=== PATIENT | male | born 1935 | race Caucasian/White ===

== ENCOUNTER → 2016-12-17 | Outpatient (CLI) | payer OTHER ==
[~2016-12-17] MED LIST: AMLO-114 PO; ASPI1TAB83 PO; CALC-16 PO; CRD4 PO; FBR PO; FSMD/70 PO; FURO-85 PO; LEVO150T PO; METO50TA16 PO; NIAC1TAB59 PO; NSP500 PO; OMEG10007 PO; POTA-335 PO; TAMS0.4C38 PO
[2016-12-17 12:26] LABS: BASO % 0.4 %; BASO ABS # 0.02 K/uL (0-0.2); COMPLETE YES; EOS % 6.2 %; HEMATOCRIT 40.8 % (42-52); IG% 0.2 %; LYMPH % 27.8 %; LYMPH ABS # 1.56 K/uL (1.2-3.4); MEAN CORPUSCULAR HEMOGLOBIN 31.8 pg (25-34); MEAN CORPUSCULAR HGB CONC 33.1 g/dl (32-36); MEAN PLATELET VOLUME 8.8 fL (7.4-10.4); MONO % 7.1 %; NEUT % 58.3 %; PLATELET COUNT 228 K/uL (130-400); RED BLOOD COUNT 4.25 M/uL (4.7-6.1); WHITE BLOOD COUNT 5.62 K/uL (4.8-10.8)
[2016-12-17 12:56] LABS: ALT/SGPT 28 U/L (12-78); BLOOD UREA NITROGEN 13 mg/dl (7-18); BUN/CREATININE RATIO 13.1 (10-20); CARBON DIOXIDE 28 mmol/L (21-32); CHLORIDE 104 mmol/L (98-107); CHOLESTEROL 151 mg/dl (0-200); GLUCOSE 94 mg/dl (70-99); SODIUM 140 mmol/L (136-145); TRIGLYCERIDES 86 mg/dl (0-150); VERY LOW DENSITY LIPOPROT CALC 17 mg/dl
[2016-12-17 12:58] LABS: CALCIUM 9.3 mg/dl (8.5-10.1)
[2016-12-17 13:05] LABS: ALB/GLOB RATIO 1.3 (0.9-2); ALKALINE PHOSPHATASE 73 U/L (45-117); AST/SGOT 29 U/L (15-37); CHOLESTEROL/HDL RATIO 3.4; HDL CHOLESTEROL 45 mg/dl; LDL CHOLESTEROL CALCULATED 89 mg/dl
== END | disposition home or self-care (01) ==
LOC: C.LABBFT 07:30
PROVIDERS: ATTEND Internal Medicine
DX: R73.01 Impaired fasting glucose (principal); E03.9 Hypothyroidism, unspecified; M81.0 Age-related osteoporosis without current pathological fracture; I10 Essential (primary) hypertension

== ENCOUNTER → 2017-01-01 | Outpatient (CLI) | payer OTHER ==
[~2017-01-01] MED LIST changes: +OPTIRAY 320 IV PRN
--- NOTE | 2017-01-01 07:48 | DIAGNOSTIC IMAGING REPORT ---
CT OF THE CHEST WITH IV CONTRAST CLINICAL HISTORY: Pulmonary nodule COMPARISON STUDY: 12/06/2015 TECHNIQUE: Following the IV administration of 94 mL of Optiray-320, CT of the thorax was performed from the thoracic inlet to the lung bases. Images are reviewed in the axial, sagittal, and coronal planes. IV contrast was administered without complication. CT DOSE: 408.26 mGy.cm FINDINGS: Thyroid: Imaged portions of the thyroid gland are normal in appearance. Thoracic aorta: The ascending thoracic aorta measures 4 cm. Pulmonary vasculature: The pulmonary trunk is normal in caliber. There are no central filling defects identified to suggest pulmonary embolus. Note that this examination was not protocoled for the evaluation of pulmonary emboli. HEART: The heart is normal in size and configuration, without pericardial effusion. Lungs and pleural spaces: No pleural effusions are visualized. There is a stable 6 x 4 mm left lower lobe pulmonary nodule as visualized in image #[id number]. There is a stable 2.5 mm right apical nodule as visualized in image #[id number]. Mediastinum: There is no mediastinal lymphadenopathy. Thu: Clear. Axilla: Clear. Upper abdomen: There is a stable 23 mm hypodensity with thin the left lobe of the liver Skeletal structures: There are no lytic or blastic osseous lesions. IMPRESSION: 1. Stable ectasia of the ascending thoracic aorta 2. Stable 6 x 4 mm left lower lobe pulmonary nodule. No further follow-up is indicated 3. Stable 2.5 mm right apical pulmonary nodule 4. No evidence of focal airspace consolidation Electronically signed by: Levi Treviño M.D. 01/01/2017 7:47 AM Dictated Date/Time: 01/01/2017 7:39 AM
== END | disposition home or self-care (01) ==
LOC: C.CTS 07:01
PROVIDERS: ATTEND Internal Medicine
DX: R91.1 Solitary pulmonary nodule (principal); I77.819 Aortic ectasia, unspecified site

== ENCOUNTER → 2017-01-16 | Outpatient (CLI) | payer OTHER ==
[~2017-01-16] MED LIST changes: -OPTIRAY 320 IV PRN
== END | disposition home or self-care (01) ==
LOC: C.LABBFT 11:22
PROVIDERS: ATTEND Urology
DX: N40.0 Benign prostatic hyperplasia without lower urinary tract symptoms (principal); C61 Malignant neoplasm of prostate

== ENCOUNTER → 2017-03-02 | Outpatient (CLI) | payer OTHER | END | disposition home or self-care (01) | LOC: C.MAMM 07:38 | PROVIDERS: ATTEND Physician Assistant | DX: M81.0 Age-related osteoporosis without current pathological fracture (principal) ==

== ENCOUNTER → 2017-04-21 | Outpatient (CLI) | payer OTHER ==
[2015-10-26 09:22] VITALS: BP 132/65; PULSE 62
[2017-04-21 12:52] VITALS: BP 124/53; PULSE 54; TEMP 36.6; O2SAT 94
--- NOTE | 2017-04-21 13:33 | Radiation Oncology Follow-Up ---
Radiation Oncology Follow-Up Date of Visit Apr 21, 2017. Reason For Visit Annual follow-up Radiation Completion Date Seed Implant 12/16/11, IMRT 03/12/12 Diagnosis (1) Prostate cancer Status: Resolved Onset Date: 12/12/2010 Location: left lobe of the prostate Histology Subtype: adenocarcinoma Stage: ll Permanent Comment: Adenocarcinoma the prostate presenting PSA 6.5 Status post ultrasound-guided biopsies. Biopsy stage T2b Potosi grade 3+4, 4+3 , and 4+4 Initiation of hormonal suppression 01/16/2011 Status post seed implant as a boost with cesium 131 12/16/2011 received 8500 cGy Status post completion of radiation therapy with IMRT/IGRT completed 03/12/2012 received 4500 cGy Osteopenia on Fosamax Last Edited By: Carri Bruce on Oct 26, 2015 11:15 Interim History His urinary status is stable over the past year. Today he gave an AUA score of 10. Last year he gave an AUA score of 10. He continues on tamsulosin 1 daily. He completed expanded prostate cancer index composite for clinical practice and gave a score of 2 of 12 and urinary incontinence symptoms. He gave a score of 4 of 12 urinary irritation symptoms. He gave a score of 0 of 12 and bowel symptoms. He gave a score of 8 of 12 sexual symptoms. He gave a score of 0 of 12 and hormonal vitality symptoms. His total was 14 of 60. This was improved from last year at 20 of 60. He hadn't been on hormonal suppression for approximate two-year time. His PSAs have been stable. He had a PSA 11/26/2015 that was 0.029. He had a PSA on 01/16/2017. And that was 0.012. His DEXA scans are followed by Dr. Gonzalez. He states that there is improvement in his DEXA scan. He continues on calcium and vitamin D as well as Fosamax. He has some lower abdominal discomfort. This is related to constipation. This is been previously evaluated with colonoscopy in 2013. He has history of diverticulosis. He does use a fiber product daily. His found that eating yogurt also helps to prevent the constipation. He is also been followed by the pulmonary nodule clinic. He has a previous history of pulmonary nodules. These are stable. He does not require a recheck CT in reviewing the previous studies. Allergies Coded Allergies: Lisinopril (Verified Adverse Reaction, Mild, MUSCLE CRAMPS, 07/28/13) Statins (Verified Adverse Reaction, Mild, MUSCLE CRAMPING, 07/28/13) Home Medications Scheduled Alendronate/Cholecalciferol (Fosamax+D 70MG/2800 Iu), 1 TABLET PO WK Amlodipine (Norvasc), 10 MG PO QPM Aspirin (Aspirin), 81 MG PO DAILY Calcium Citrate-Vitamin D (Calcium Citrate+D), 1 TAB PO BID Calcium Polycarbophil (Fibercon *), 4 CAP PO HS Calcium Polycarbophil (Fibercon *), 3 CAP PO AM Doxazosin Mesylate (Cardura *), 8 MG PO HS Fish Oil ([place]-3), 1 CAP PO BID Furosemide (Lasix), 1 TAB PO DAILY Levothyroxine Sodium (Synthroid), 150 MCG PO DAILY Metoprolol Tartrate (Lopressor) (Lopressor), 50 MG PO BID Niacin Ext Rel (Niaspan Ext Rel), 2,000 MG PO HS Niacin Ext Rel (Niaspan Ext Rel), 500 MG PO HS Potassium Chloride (Micro-K Ext Rel), 20 MEQ PO BID Tamsulosin Hcl (Flomax), 1 CAP PO DAILY Review of Systems Gastrointestinal: Symptoms: WNL GI Comments: Diarrhea over the weekend - has since resolved Oral: Symptoms: No Problems Respiratory: Symptoms: WNL Urinary: Symptoms: WNL, Nocturia Comments: Nocturia x 1-2, Urgency Skin: Other Skin Symptoms: See AUA & EPIC Physical Exam Vital Signs Date Time Temp Pulse Resp B/P (MAP) Pulse Ox O2 Delivery O2 Flow Rate FiO2 04/21/17 12:52 36.6 54 16 124/53 94 Pain: Side: Bilateral Patient Pain Scale: 0 - 10 Initial Pain Intensity: 0.0 Fatigue: None General Appearance: no apparent distress Eyes: normal inspection, EOMI ENT: normal ENT inspection, hearing grossly normal Neck: no adenopathy, thyroid normal Respiratory/Chest: lungs clear, no respiratory distress, no accessory muscle use Cardiovascular: regular rate, rhythm, no gallop, no murmur Anal / Rectum: External and internal hemorrhoids. No rectal masses no rectal bleeding Prostate consistent with seed implant. There are no nodules. Extremities: no pedal edema Neurologic/Psychiatric: no motor/sensory deficits, alert, normal mood/affect Skin: warm/dry Additional Studies PSAs as reviewed above. Assessment & Plan Plan: Continue regular follow-up with his primary care physician, urology, and rheumatology. He'll continue to get PSAs on an annual basis. Follow-up DEXA scanning through rheumatology. A follow-up appointment with our office was not given. He may call if he has any questions or concerns we'll be happy to see him. Total Time In Follow-Up I spent 20 minutes speaking to the patient forming examination. I spent15 minutes reviewing information and completing this note. Copy To William Shirley M.D.; Caroline Gonzalez MD; Roldan Ervin MD
== END | disposition home or self-care (01) ==
LOC: C.ONC 12:33
PROVIDERS: ATTEND Physician Assistant Medical
DX: Z08 Encounter for follow-up examination after completed treatment for malignant neoplasm (principal); Z92.3 Personal history of irradiation; Z85.46 Personal history of malignant neoplasm of prostate

== ENCOUNTER → 2017-05-12 | Outpatient (CLI) | payer OTHER ==
--- NOTE | 2017-05-12 11:11 | DIAGNOSTIC IMAGING REPORT ---
CAROTID DOPPLER NECK ART HISTORY: Mental status change I65.29 Carotid artery stenosis, [id number] F.PU., LAST DOPP COMPARISON: 04/28/2016 TECHNIQUE: Real-time, grayscale, and color Doppler sonography of the carotid arteries was performed. Imaging reviewed in the transverse and longitudinal planes. All measurements were calculated based on NASCET criteria. FINDINGS: Antegrade flow is seen in the bilateral vertebral arteries. The brachial pressures are hemodynamically similar. Moderate plaque formation bilaterally. The peak systolic velocity within the right ICA is 174. The right systolic ratio is 2.6. The peak systolic velocity within the left ICA is 1:30. The left systolic ratio is 2.0. IMPRESSION: 1. 50-65% narrowing right internal carotid artery. 2. 30% narrowing of the left internal carotid artery. 3. Mild 30-40% narrowing of the extra carotid arteries bilaterally. 4. No significant change from the prior exam The above report was generated using voice recognition software. It may contain grammatical, syntax or spelling errors. Electronically signed by: Tima Smith M.D. 05/12/2017 11:09 AM Dictated Date/Time: 05/12/2017 11:07 AM
== END | disposition home or self-care (01) ==
LOC: C.ULTR 09:37
PROVIDERS: ATTEND Surgery
DX: I65.23 Occlusion and stenosis of bilateral carotid arteries (principal)

== ENCOUNTER → 2017-07-17 | Outpatient (CLI) | payer OTHER ==
[~2017-07-17] MED LIST changes: -AMLO-114 PO; +AMLO10TA3 PO
== END | disposition home or self-care (01) ==
LOC: C.LABBFT 07:48
PROVIDERS: ATTEND Internal Medicine
DX: E55.9 Vitamin D deficiency, unspecified (principal); E03.9 Hypothyroidism, unspecified

== ENCOUNTER → 2018-02-09 | Outpatient (CLI) | payer OTHER | END | disposition home or self-care (01) | LOC: C.MAMM 10:48 | PROVIDERS: ATTEND Physician Assistant | DX: M81.0 Age-related osteoporosis without current pathological fracture (principal) ==

== ENCOUNTER 2023-06-25 10:31 | Inpatient (IN) ==
[2023-06-25] MEDS ORDERED: ALBUT/IPRATROP 3MG/0.5MG NEB 3 ML VIAL NEB STA (11:22)
[2023-06-25 11:38] LABS: Basophils # (auto) 0.04 K/uL (0.00-0.20); Basophils % (auto) 0.3 %; Eosinophils # (auto) 0.18 K/uL (0.00-0.50); Eosinophils % (auto) 1.2 %; Hematocrit (blood only) 34.7 % (42.0-52.0); Hemoglobin 11.9 g/dl (14.0-18.0); Immature Granulocytes # (auto) 0.16 K/uL (0.01-0.20); Immature Granulocytes % (auto) 1.1 %; Lymphocytes % (auto) 4.1 %; Mean Corpuscular Hemoglobin 33.1 pg (25.0-34.0); Mean Corpuscular Hgb Conc 34.3 g/dL (32.0-36.0); Mean Corpuscular Volume 96.4 fL (80.0-100.0); Mean Platelet Volume 8.6 fL (9.4-12.4); Monocytes # (auto) 0.84 K/uL (0.11-0.59); Monocytes % (auto) 5.8 %; Neutrophils # (auto) 12.69 K/uL (1.40-6.50); Neutrophils % (auto) 87.5 %; Platelet Count 312 K/uL (130-400); RDW Coefficient of Variation 12.9 % (11.5-14.5); RDW Standard Deviation 45.9 fL (36.4-46.3); White Blood Count 14.51 K/ul (4.8-10.8)
--- NOTE | 2023-06-25 11:38 | XRay Report ---
SINGLE VIEW CHEST CLINICAL HISTORY: Chest weakness. Cough and chest congestion. FINDINGS: 2 AP, portable, upright chest radiographs are compared to study dated 05/26/2014 and correla franky with chest CT dated 01/01/2017. The heart is enlarged and noting atherosclerotic calcification of the thoracic aorta. The pulmonary vasculature is noncongested. Chronic interstitial thickening is sim ilar to previous. There is elevation right hemidiaphragm. Foci of parenchymal scarring are seen throu ghout both lungs. There are left basilar airspace opacities. There are also mild opacities in the rig ht midlung. No large pleural effusion or pneumothorax is seen. The skeletal structures are osteopenic . The bony thorax is grossly intact. Degenerative change is noted in the shoulders and spine. IMPRESSION: 1. Cardiomegaly without radiographic evidence of congestive failure. 2. Left basilar opacities as well as mild opacities in the right midlung could represent scarring/ate lectasis versus an infectious/inflammatory pneumonitis. Clinical correlation will be required and rad iographic follow-up to resolution is recommended. 3. No pleural effusion is seen. ACT 112: Negative or not required by law. Electronically signed by: Reji Garcia M.D. 06/25/2023 11:37 AM
[2023-06-25 11:52] LABS: Alanine Aminotransferase 31 U/L (7-52); Albumin Level 3.4 gm/dl (3.4-5.0); Alkaline Phosphatase 80 U/L (34-104); Anion Gap 10 (3-11); Aspartate Aminotransferase 37 U/L (13-39); BUN Creatinine Ratio 15.5 (10-20); Bilirubin,Total 0.8 mg/dl (0.2-1.0); Blood Urea Nitrogen 13 mg/dl (6-23); Calcium 9.1 mg/dl (8.6-10.3); Carbon Dioxide 24 mmol/L (21-32); Chloride 97 mmol/L (98-107); Est GFR (Non-African American) 77.6 ml/min; Globulin 3.3 gm/dl (2.5-4.0); Glucose 125 mg/dl (70-99(Fasting)); Potassium 3.7 mmol/L (3.5-5.1); Sodium 131 mmol/L (136-145); Total Protein 6.7 gm/dl (6.0-8.3)
[2023-06-25] MEDS ORDERED: cefTRIAXone SODIUM 2,000 MG/50 ML BAG IV STA (11:54)
[2023-06-25] MEDS ORDERED: SODIUM CHLORIDE 0.9% 1,000 ML IV SCH (12:00)
--- NOTE | 2023-06-25 12:01 | Emergency Department Note ---
Impression & Plan Pneumonia, Acute non-ST elevation myocardial infarction (NSTEMI) ED Provider Note CHIEF COMPLAINT: Shortness of breath, cough HISTORY OF PRESENT ILLNESS: This 87-year-old male patient past medical history of dementia, anemia, hypercholesterolemia, hypertension, hypothyroidism, carotid stenosis, prostate cancer presents to the emergency department with complaints of cough and shortness of breath. Patient's son is at the bedside, stating today's first day he noticed mucus production. He denies any fevers or chest discomfort. He has not had any vomiting or diarrhea. Patient was seen at the PCPs office today and referred to the ED for further evaluation. REVIEW OF SYSTEMS: A review of systems was performed with positives and pertinent negatives listed in the history of present illness. 10 systems were reviewed and are otherwise negative. ALLERGIES: see below MEDICATIONS: see below PMH: see below SOCIAL HISTORY: see below DDx:Reactive airway disease, pneumonia, pneumothorax, COPD, CHF, infections, cardiac ischemia, pulmonary embolism, as well as other pathologies. PHYSICAL EXAM: Vital signs reviewed. General: Well-appearing 87-year-old, in no significant distress. HEENT: No scleral icterus, PERRLA, neck supple. Atraumatic. Cardiovascular: Regular rate and rhythm, no extra sounds. Pulmonary: Clear to auscultation bilaterally, normal work of breathing. Abdomen: Soft, nontender, nondistended, positive bowel sounds. Musculoskeletal: Atraumatic, no peripheral edema. Neurologic: Patient awake alert and pleasantly confused. Answering most questions appropriately. Skin: Warm, dry, no rash EMERGENCY DEPARTMENT COURSE/MDM: This patient was evaluated and appeared to be in no significant distress. Chest x-ray was performed and reveals patchy bilateral infiltrates. Patient does have an oxygen requirement via nasal cannula for recurrent desaturations into the mid to high 80s. IV fluids were initiated. The patient was medicated with IV ceftriaxone after blood cultures were obtained. Patient's laboratory work reveals a leukocytosis and elevated high-sensitivity troponin at 1061. EKG reveals no evidence of acute ischemic change to my interpretation. Patient did receive aspirin 324 mg by mouth. He again denied any chest discomfort. Given the patchy bilateral infiltrates, oxygen requirement and non-STEMI, patient's case was discussed with the hospitalist service for admission and further management. MONITORING: An order for cardiac monitoring was placed and the patient is noted to be in a normal sinus rhythm at 67 beats per minute. RADIOLOGY: Chest x-ray to my interpretation reveals cardiomegaly and left basilar opacity and right midlung opacities, otherwise defer to radiology is over read EKG: To my interpretation reveals normal sinus rhythm with sinus arrhythmia at 73 bpm. Normal QTc at 405, no PVC, no PAC. Normal ST segments. 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 Biopsy stage T2b [place] grade 3+4, 4+3, and 4+4 Initiation of hormonal suppression 01/16/2011 Status post seed implant as a boost with cesium 131 12/16/2011 received 8500 cGy Status post completion of radiation therapy with IMRT/IGRT completed 03/12/2012 received 4500 cGy Osteopenia on Fosamax" Surgical History S/P cholecystectomy S/P cataract surgery Family History Mother Heart disease Other Hypertension Denies family history of Ovarian cancer Prostate cancer Coronary heart disease Myocardial infarction Breast cancer Colorectal cancer Social History Smoking Status: Former smoker Tobacco Type: Cigarettes Age Started Using Tobacco: 14; Age Quit Using Tobacco: 19; packs per day: 1.5; Cigarettes Per Day: 30; Second Hand Exposure: No; Do You Dip or Chew Tobacco: No; Hx Alcohol Use: No Hx Substance Use: No Preferred Language: Brazilian Communication Ability: Effective Visual Impairment: No Limitations Hearing Ability: Normal 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 Beliefs That Will Affect Care: None marital status: / Current Living Situation: Alone current occupational status: retired Feels Safe at Home: Yes Childhood Exposure to Second-Hand Smoke: Yes Diet: regular caffeine: Yes Dental Care, Regularly: No Physical Activity Frequency: Daily Seatbelt Use: always Sunscreen Use: No Assistive Devices: Cane Allergies Allergies Allergy/AdvReac Type Severity Reaction Status Date / Time lisinopril AdvReac Mild MUSCLE Verified 06/25/23 09:29 CRAMPS Thieoey-[id number]-TdN Reductase AdvReac Mild MUSCLE Verified 06/25/23 09:29 Inhibitor CRAMPING [Mjebpxa-Iph-Njd Reductase Inhibitor] ezetimibe [From Zetia] AdvReac Unknown Unknown Verified 06/25/23 09:29 losartan [From Cozaar] AdvReac Unknown Unknown Verified 06/25/23 09:29 olmesartan [From Benicar] AdvReac Unknown Unknown Verified 06/25/23 09:29 pravastatin AdvReac Unknown Unknown Verified 06/25/23 09:29 rosuvastatin [From Crestor] AdvReac Unknown Unknown Verified 06/25/23 09:29 simvastatin AdvReac Unknown Unknown Verified 06/25/23 09:29 Home Meds Previous Rx's Medication Instructions Recorded triamcinolone acetonide 0.1 % 1 applic topical BID #454 grams 08/06/22 topical cream ferrous sulfate 325 mg (65 mg 325 mg PO Q OTHER DAY #15 tabs 11/05/22 iron) tablet calcium polycarbophil 625 mg tablet 625 mg PO .COMPLEX #90 tabs 11/18/22 donepezil 10 mg tablet 10 mg PO DAILY #30 tabs 12/01/22 furosemide 20 mg tablet 20 mg PO DAILY #30 tabs 12/01/22 levothyroxine 175 mcg tablet 175 mcg PO DAILY #30 tabs 12/01/22 metoprolol tartrate 50 mg tablet 50 mg PO BID #60 tabs 12/01/22 potassium chloride 20 mEq 20 meq PO BID #180 tabs 12/10/22 tablet,extended release niacin 1,000 mg tablet,extended 2,000 mg (2 x 1,000 mg) PO HS #30 05/08/23 release tabs niacin 500 mg tablet,extended 500 mg PO HS #30 tabs 05/08/23 release amiodarone 200 mg tablet 200 mg PO QAM #90 tabs 06/28/23 apixaban 5 mg tablet (Eliquis) 5 mg PO BID #180 tabs 06/28/23 benzocaine 20 % mucosal gel 1 applic MT TID PRN mouth 06/28/23 (HurriCaine) irritation #28.4 grams cefdinir 300 mg capsule 300 mg PO BID #6 caps 06/28/23 doxazosin 4 mg tablet 4 mg PO HS #30 tabs 06/29/23 Results & Data (ED) Vital Signs Vital Signs - 24 hr 06/25/23 10:41 06/25/23 11:18 06/25/23 11:35 Temperature 36.3 C L Temperature Source Temporal Artery Scan Pulse Rate 70 74 Pulse Rate [Finger] 67 Pulse Rhythm [Finger] Regular Respiratory Rate 18 18 Respiratory Effort / Characteristics Non-Labored Spontaneous Non-Labored Spontaneous Respiratory Depth Normal Normal Respiratory Pattern Regular Regular Blood Pressure 117/70 Blood Pressure [Right Arm] 132/70 Blood Pressure Mean 85 Blood Pressure Mean [Right Arm] 90 Blood Pressure Position Sitting Blood Pressure Position [Right Arm] Sitting Pulse Oximetry 92 98 Oxygen Delivery Method Room Air Nebulizer Sepsis Recent Fever Within 48 Hours No Sepsis New/Unexplained Change in Mental Status N/A Sepsis Action Taken by Nursing No Action Required Pulse Oximetry Post Tiitration 06/25/23 11:35 Temperature Temperature Source Pulse Rate Pulse Rate [Finger] Pulse Rhythm [Finger] Respiratory Rate Respiratory Effort / Characteristics Respiratory Depth Respiratory Pattern Blood Pressure Blood Pressure [Right Arm] Blood Pressure Mean Blood Pressure Mean [Right Arm] Blood Pressure Position Blood Pressure Position [Right Arm] Pulse Oximetry 95 Oxygen Delivery Method Room Air Nebulizer Sepsis Recent Fever Within 48 Hours Sepsis New/Unexplained Change in Mental Status Sepsis Action Taken by Nursing Pulse Oximetry Post Tiitration 98 Home Medications Current Medication List: was personally reviewed by me Laboratory Data Attestation: I reviewed the patient's lab results. 06/28/23 05:35 06/28/23 05:35 Lab Results 06/25/23 Range/Units 11:20 WBC 14.51 H (4.8-10.8) K/ul RBC 3.60 L (4.70-6.10) M/uL Hgb 11.9 L (14.0-18.0) g/dl Hct 34.7 L (42.0-52.0) % MCV 96.4 (80.0-100.0) fL MCH 33.1 (25.0-34.0) pg MCHC 34.3 (32.0-36.0) g/dL RDW Std Deviation 45.9 (36.4-46.3) fL RDW Coeff of Brown 12.9 (11.5-14.5) % Plt Count 312 (130-400) K/uL MPV 8.6 L (9.4-12.4) fL Immature Gran % (Auto) 1.1 % Neut % (Auto) 87.5 % Lymph % (Auto) 4.1 % Towner % (Auto) 5.8 % Eos % (Auto) 1.2 % Baso % (Auto) 0.3 % Neut # (Auto) 12.69 H (1.40-6.50) K/uL Lymph # (Auto) 0.60 L (1.20-3.40) K/uL Towner # (Auto) 0.84 H (0.11-0.59) K/uL Eos # (Auto) 0.18 (0.00-0.50) K/uL Baso # (Auto) 0.04 (0.00-0.20) K/uL Immature Gran # (Auto) 0.16 (0.01-0.20) K/uL Sodium 131 L (136-145) mmol/L Potassium 3.7 (3.5-5.1) mmol/L Chloride 97 L (98-107) mmol/L Carbon Dioxide 24 (21-32) mmol/L Anion Gap 10 (3-11) BUN 13 (6-23) mg/dl Creatinine 0.84 (0.6-1.4) mg/dl Est Cr Clr Drug Dosing Not Reportable Est GFR ( Amer) 90.0 ml/min Est GFR (Non-Af Amer) 77.6 ml/min BUN/Creatinine Ratio 15.5 (10-20) Glucose 125 H (70-99(Fasting)) mg/dl Calcium 9.1 (8.6-10.3) mg/dl Total Bilirubin 0.8 (0.2-1.0) mg/dl AST 37 (13-39) U/L ALT 31 (7-52) U/L Alkaline Phosphatase 80 (34-104) U/L Troponin I High Sens 1061.3 H* (0-20) pg/ml Total Protein 6.7 (6.0-8.3) gm/dl Albumin 3.4 (3.4-5.0) gm/dl Globulin 3.3 (2.5-4.0) gm/dl Albumin/Globulin Ratio 1.0 (0.9-2) Procalcitonin Cancelled Adenovirus (PCR) Not Detected (NotDetected) B. pertussis DNA (PCR) Not Detected (NotDetected) B.parapertussis DNA PCR Not Detected (NotDetected) C. pneumoniae DNA (PCR) Not Detected (NotDetected) Coronavirus OC43 (PCR) Not Detected (NotDetected) Coronavirus HKU1 (PCR) Not Detected (NotDetected) Coronavirus 229E (PCR) Not Detected (NotDetected) SARS-CoV-2 (PCR) Not Detected (NotDetected) Coronavirus NL63 (PCR) Not Detected (NotDetected) Human Metapneumovir PCR Not Detected (NotDetected) Influenza Type A (PCR) Not Detected (NotDetected) Influenza Type B (PCR) Not Detected (NotDetected) M. pneumoniae (PCR) Not Detected (NotDetected) Parainfluenza 1 (PCR) Not Detected (NotDetected) Parainfluenza 2 (PCR) Not Detected (NotDetected) Parainfluenza 3 (PCR) Not Detected (NotDetected) Parainfluenza 4 (PCR) Not Detected (NotDetected) RSV (PCR) Not Detected (NotDetected) Entero/Rhino (PCR) Not Detected (NotDetected) Administered Medications Discontinued Medications Albuterol (Albut/Ipratrop 3mg/0.5mg Neb 3 Ml Vial) 3 ml NEB NOW STA; Protocol Stop: 06/25/23 11:23 Last Admin: 06/25/23 11:32 Dose: 3 ml Documented By: SKGosia Albuterol (Albut/Ipratrop 3mg/0.5mg Neb 3 Ml Vial) 3 ml NEB Q4R KELLEE; Protocol Stop: 07/25/23 14:59 Last Admin: 06/28/23 14:30 Dose: 3 ml Documented By: Admin: 06/28/23 10:30 Dose: 3 ml Documented By: Admin: 06/28/23 07:17 Dose: 3 ml Documented By: Admin: 06/28/23 02:47 Dose: 3 ml Documented By: Admin: 06/27/23 22:03 Dose: 3 ml Documented By: Admin: 06/27/23 17:59 Dose: 3 ml Documented By: Admin: 06/27/23 14:31 Dose: 3 ml Documented By: Admin: 06/27/23 11:06 Dose: 3 ml Documented By: Admin: 06/27/23 07:27 Dose: 3 ml Documented By: Admin: 06/27/23 02:55 Dose: 3 ml Documented By: Admin: 06/26/23 22:40 Dose: 3 ml Documented By: Admin: 06/26/23 19:56 Dose: 3 ml Documented By: Admin: 06/26/23 15:25 Dose: 3 ml Documented By: Admin: 06/26/23 10:49 Dose: 3 ml Documented By: Admin: 06/26/23 07:04 Dose: 3 ml Documented By: Admin: 06/26/23 03:53 Dose: Not Given Documented By: Admin: 06/25/23 23:14 Dose: 3 ml Documented By: Admin: 06/25/23 19:28 Dose: 3 ml Documented By: Admin: 06/25/23 16:22 Dose: Not Given Documented By: [facility] Amiodarone HCl (Amiodarone 200 Mg Tab) 200 mg PO BIDM KELLEE Stop: 07/26/23 09:39 Last Admin: 06/28/23 09:55 Dose: 200 mg Documented By: Admin: 06/27/23 17:52 Dose: 200 mg Documented By: Admin: 06/27/23 08:30 Dose: 200 mg Documented By: Admin: 06/26/23 16:06 Dose: 200 mg Documented By: Admin: 06/26/23 10:47 Dose: 200 mg Documented By: REYNALDO Apixaban (Apixaban 5 Mg Tablet) 5 mg PO BID KELLEE Stop: 07/26/23 09:44 Last Admin: 06/28/23 09:55 Dose: 5 mg Documented By: Admin: 06/27/23 20:14 Dose: 5 mg Documented By: Admin: 06/27/23 09:46 Dose: 5 mg Documented By: Admin: 06/26/23 20:24 Dose: 5 mg Documented By: Admin: 06/26/23 10:47 Dose: 5 mg Documented By: REYNALDO Aspirin (Aspirin Chew 324 Mg) 324 mg PO NOW STA Stop: 06/25/23 12:09 Last Admin: 06/25/23 12:18 Dose: 324 mg Documented By: ANGELIQUE Azithromycin (Azithromycin 250 Mg Tab) 500 mg PO NOW ONE Stop: 06/25/23 15:46 Last Admin: 06/25/23 16:31 Dose: 500 mg Documented By: VIVIANA Azithromycin (Azithromycin 250 Mg Tab) 250 mg PO QAM [facility] Stop: 06/30/23 08:59 Last Admin: 06/28/23 09:55 Dose: 250 mg Documented By: Admin: 06/27/23 08:30 Dose: 250 mg Documented By: Admin: 06/26/23 08:17 Dose: 250 mg Documented By: REYNALDO Benzocaine (Benzocaine 20% (Orajel) 11.9 Gm Tube) 1 appln MT TID PRN PRN Reason: mouth/gum pain Stop: 07/26/23 10:42 Last Admin: 06/26/23 11:57 Dose: 1 appln Documented By: REYNALDO Donepezil HCl (Donepezil Hcl 10 Mg Tab) 10 mg PO DAILY KELLEE Stop: 07/26/23 08:59 Last Admin: 06/28/23 09:55 Dose: 10 mg Documented By: Admin: 06/27/23 08:30 Dose: 10 mg Documented By: Admin: 06/26/23 08:18 Dose: 10 mg Documented By: REYNALDO Doxazosin Mesylate (Doxazosin Mesylate 4 Mg Tab) 8 mg PO HS [facility] Stop: 07/25/23 20:59 Last Admin: 06/27/23 20:14 Dose: 8 mg Documented By: Admin: 06/26/23 20:25 Dose: 8 mg Documented By: Admin: 06/25/23 20:22 Dose: 8 mg Documented By: AAMIR Enoxaparin Sodium (Enoxaparin Inj 40 Mg/0.4 Ml Syr) 40 mg SQ DAILY KELLEE Stop: 07/25/23 15:44 Last Admin: 06/25/23 17:18 Dose: Not Given Documented By: VIVIANA Fluticasone Propionate (Fluticasone Propionate Na Spr 16 Gm Btl) 2 sprays NA DAILY [facility] Stop: 07/26/23 08:59 Last Admin: 06/28/23 09:55 Dose: 2 sprays Documented By: Admin: 06/27/23 08:30 Dose: 2 sprays Documented By: Admin: 06/26/23 08:18 Dose: 2 sprays Documented By: REYNALDO Guaifenesin (Guaifenesin 600 Mg Tabcr) 600 mg PO Q12 KELLEE Stop: 07/25/23 20:59 Last Admin: 06/28/23 09:55 Dose: 600 mg Documented By: Admin: 06/27/23 20:14 Dose: 600 mg Documented By: Admin: 06/27/23 08:30 Dose: 600 mg Documented By: Admin: 06/26/23 20:25 Dose: 600 mg Documented By: Admin: 06/26/23 08:18 Dose: 600 mg Documented By: Admin: 06/25/23 20:22 Dose: 600 mg Documented By: AAMIR Heparin Sodium (Porcine) (Heparin Sod (Porcine) 1000 Unit/Ml) 4,000 units IV NOW ONE Stop: 06/25/23 16:16 Last Admin: 06/25/23 17:06 Dose: 4,000 units Documented By: VIVIANA Co-signed By: RU Heparin Sodium (Porcine) (Heparin Sod (Porcine) 1000 Unit/Ml) 3,000 units IV NOW ONE Stop: 06/26/23 08:16 Last Admin: 06/26/23 08:22 Dose: 3,000 units Documented By: REYNALDO Co-signed By: Heparin Sodium/Dextrose (Heparin Iv Adult Wt-Based Low-Dose W/ Initial Bolus Protocol) 1 each IV NOW STA; Protocol Stop: 06/25/23 15:58 Last Admin: 06/25/23 17:57 Dose: Not Given Documented By: [id number] Sodium Chloride (Nss) 1,000 mls @ 100 mls/hr IV .Q10H KELLEE Stop: 07/25/23 11:59 Last Infusion: 06/25/23 17:34 Dose: Infused Documented By: Admin: 06/25/23 12:11 Dose: 100 mls/hr Documented By: ANGELIQUE Ceftriaxone Sodium (Rocephin) 2,000 mg in 50 mls @ 100 mls/hr IV NOW STA Stop: 06/25/23 12:23 Last Infusion: 06/25/23 13:50 Dose: Infused Documented By: Admin: 06/25/23 12:10 Dose: 100 mls/hr Documented By: ANGELIQUE Ceftriaxone Sodium 2,000 mg/ (Dextrose) 50 mls @ 100 mls/hr IV Q24H KELLEE; Protocol Stop: 07/03/23 11:59 Last Infusion: 06/28/23 14:21 Dose: Infused Documented By: Admin: 06/28/23 13:30 Dose: 100 mls/hr Documented By: Infusion: 06/27/23 12:51 Dose: Infused Documented By: Admin: 06/27/23 11:47 Dose: 100 mls/hr Documented By: Infusion: 06/26/23 16:06 Dose: Infused Documented By: Admin: 06/26/23 15:23 Dose: 100 mls/hr Documented By: WS Heparin Sodium/Dextrose (Heparin Sodium/Dextrose) 25,000 units in 500 mls @ 25 mls/hr IV .Q20H KELLEE; Protocol Stop: 07/25/23 16:14 Last Titration: 06/26/23 10:41 Dose: Infused Documented By: REYNALDO Co-signed By: Titration: 06/26/23 08:22 Dose: 1,250 units/hr, 25 mls/hr Documented By: REYNALDO Co-signed By: MS Titration: 06/26/23 07:22 Dose: 1,100 units/hr, 22 mls/hr Documented By: WS Co-signed By: AM Titration: 06/26/23 00:09 Dose: 1,100 units/hr, 22 mls/hr Documented By: AAMIR Co-signed By: VIOLETA Admin: 06/25/23 17:06 Dose: 1,000 units/hr, 20 mls/hr Documented By: VIVIANA Co-signed By: RRR Magnesium Sulfate/Dextrose (Magnesium Sulfate / D5w) 1 gm in 100 mls @ 50 mls/hr IV Q2H KELLEE Stop: 06/26/23 00:44 Last Infusion: 06/26/23 01:00 Dose: Infused Documented By: Admin: 06/25/23 22:59 Dose: 50 mls/hr Documented By: Infusion: 06/25/23 22:53 Dose: Infused Documented By: Admin: 06/25/23 20:48 Dose: 50 mls/hr Documented By: Infusion: 06/25/23 20:47 Dose: Infused Documented By: Admin: 06/25/23 18:41 Dose: 50 mls/hr Documented By: Infusion: 06/25/23 18:41 Dose: Infused Documented By: Admin: 06/25/23 16:51 Dose: 50 mls/hr Documented By: VIVIANA Parenteral Electrolytes (Plasma-Lyte A Ph 7.4) 500 mls @ 999 mls/hr IV .Q31M ONE Stop: 06/25/23 17:39 Last Infusion: 06/25/23 18:30 Dose: Infused Documented By: Admin: 06/25/23 17:35 Dose: 999 mls/hr Documented By: VIVIANA Parenteral Electrolytes (Plasma-Lyte A Ph 7.4) 1,000 mls @ 125 mls/hr IV .Q8H KELLEE Stop: 06/26/23 01:14 Last Infusion: 06/26/23 00:59 Dose: Infused Documented By: Admin: 06/25/23 17:48 Dose: 125 mls/hr Documented By: VIVIANA Levothyroxine Sodium (Levothyroxine Sodium 175 Mcg Tablet) 175 mcg PO DAILYBB [facility] Stop: 07/26/23 06:29 Last Admin: 06/28/23 06:27 Dose: 175 mcg Documented By: Admin: 06/27/23 05:37 Dose: 175 mcg Documented By: Admin: 06/26/23 07:00 Dose: 175 mcg Documented By: AAMIR Metoprolol Tartrate (Metoprolol Tartrate 50 Mg Tab) 50 mg PO BID [facility] Stop: 07/25/23 20:59 Last Admin: 06/28/23 09:55 Dose: 50 mg Documented By: Admin: 06/27/23 20:14 Dose: 50 mg Documented By: Admin: 06/27/23 08:30 Dose: 50 mg Documented By: Admin: 06/26/23 20:24 Dose: 50 mg Documented By: Admin: 06/26/23 08:17 Dose: 50 mg Documented By: Admin: 06/25/23 20:32 Dose: 50 mg Documented By: AAMIR Metoprolol Tartrate (Metoprolol Tartrate 1 Mg/Ml Vial) 5 mg IV NOW STA Stop: 06/25/23 15:58 Last Admin: 06/25/23 16:13 Dose: 5 mg Documented By: VIVIANA Metoprolol Tartrate (Metoprolol Tartrate 1 Mg/Ml Vial) 5 mg IV NOW STA Stop: 06/26/23 01:08 Last Admin: 06/26/23 01:24 Dose: 5 mg Documented By: AM Niacin (Niacin Extended Rel 500 Mg Tabcr) 2,000 mg PO HS KELLEE Stop: 07/25/23 20:59 Last Admin: 06/27/23 20:13 Dose: 2,000 mg Documented By: Admin: 06/26/23 20:26 Dose: 2,000 mg Documented By: Admin: 06/25/23 20:23 Dose: 2,000 mg Documented By: AM Potassium Chloride (Potassium Chloride Crtab 20 Meq Tabcr) 20 meq PO BID KELLEE Stop: 07/25/23 20:59 Last Admin: 06/28/23 10:00 Dose: 20 meq Documented By: Admin: 06/27/23 20:16 Dose: 20 meq Documented By: Admin: 06/27/23 08:33 Dose: 20 meq Documented By: Admin: 06/26/23 20:27 Dose: 20 meq Documented By: Admin: 06/26/23 08:18 Dose: 20 meq Documented By: Admin: 06/25/23 20:24 Dose: 20 meq Documented By: AM Potassium Chloride (Potassium Chloride Crtab 20 Meq Tabcr) 40 meq PO NOW STA Stop: 06/26/23 08:43 Last Admin: 06/26/23 09:06 Dose: 40 meq Documented By: REYNALDO Imaging Data Radiologist's Impression: Chest X-Ray 06/25/23 10:45 SINGLE VIEW CHEST CLINICAL HISTORY: Chest weakness. Cough and chest congestion. FINDINGS: 2 AP, portable, upright chest radiographs are compared to study dated 05/26/2014 and correlated with chest CT dated 01/01/2017. The heart is enlarged and noting atherosclerotic calcification of the thoracic aorta. The pulmonary vasculature is noncongested. Chronic interstitial thickening is similar to previous. There is elevation right hemidiaphragm. Foci of parenchymal scarring are seen throughout both lungs. There are left basilar airspace opacities. There are also mild opacities in the right midlung. No large pleural effusion or pneumothorax is seen. The skeletal structures are osteopenic. The bony thorax is grossly intact. Degenerative change is noted in the shoulders and spine. IMPRESSION: 1. Cardiomegaly without radiographic evidence of congestive failure. 2. Left basilar opacities as well as mild opacities in the right midlung could represent scarring/atelectasis versus an infectious/inflammatory pneumonitis. Clinical correlation will be required and radiographic follow-up to resolution is recommended. 3. No pleural effusion is seen. ACT 112: Negative or not required by law. Electronically signed by: Reji Garcia M.D. 06/25/2023 11:37 AM Discharge Plan Visit Data Chief Complaint: Shortness of Breath/Dyspnea Stated Complaint: CHEST CONGESTION, SOB, REFERRED BY DOCTOR ED Provider: Karen Kidd Discharge Problem: Pneumonia, Acute non-ST elevation myocardial infarction (NSTEMI) Patient Disposition: Admitted As Inpatient Condition: Good Discharge Instructions Interventions: ED Discharge Assessment Last Done: 06/25/23 14:15 Discharge Problem: Pneumonia Qualifiers: Pneumonia type: due to unspecified organism Laterality: bilateral Lung location: unspecified part of lung Qualified Code(s): J18.9 - Pneumonia, unspecified organism
[2023-06-25 12:05] LABS: Troponin I High Sensitivity 1061.3 pg/ml (0-20)
[2023-06-25] MEDS ORDERED: ASPIRIN CHEW 324 MG PO STA (12:08)
--- NOTE | 2023-06-25 12:17 | History & Physical Report ---
Date of Service June 25, 2023 Assessment & Plan (1) Pneumonia: Plan: Likely bacterial pneumonia. No COPD or asthma history. Patient does not meet SIRs criteria and is non-toxic appearing. BioFire negative. Started on CTX in the ED. Repeat CXR with unclear findings. Consider CT if clinical picture worsening. ABX: start 06/25 CTX will continue for now and add on Azithromycin f/u blood cultures pulmonary toilet - IS, mucinex, nebs as needed procal pending AM CBC (2) Elevated troponin: Plan: Elevated troponin @ 1061. 2 hour repeat pending. Likely demand ischemia as EKG without signs of ischemic changes and patient asymptomatic. Continue to monitor. If trop persistently elevated would get limited ECHO. (3) Weakness: Plan: Likely in the setting of acute illness. PT/OT ordered. (4) Hyponatremia: Plan: Likely in the setting of poor PO intake in acutely ill period. Would encourage PO and continue to monitor. Continue with NS IVF for now. AM BMP (5) Hypertension: Plan: Stable on metoprolol and furosemide. Continue metoprolol. Would hold furosemide for today as patient hypovolemic, normotensive, and without signs of fluid overload. No history of heart failure. Does have cardiomyopathy. Resume based on clinical status. (6) Prostate cancer: Plan: Continue home doxazosin. 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 (8) Hypercholesterolemia: Plan: Patient statin intolerant. Continue home niacin 2500 mg. Plan Code status: full DVT ppx: Lovenox SQ 40 mg QAM FENGI: heart healthy, NS @ 100 mL/hr Dispo: [facility] - Tele History of Present Illness Chief Complaint: SOB Primary Care Provider: William Shirley MD 87 y/o male with a PMHx of dementia, osteoporosis, HTN, asymptomatic, carotid artery stenosis, hypothyroidism, brought in by son after outpatient appointment today as he has been having progressive SOB of approximately 1 week duration. O2 saturation was 91% in office which prompted ED evaluation. Patient was started on CTX for presumed pneumonia and given a nebulizer treatment. Patient was also dehydrated and was started on NS @ 100 mL/hr. Notably labs were significant for leukocytosis and an elevated troponin at 1061. Repeat is pending. EKG without ST changes. Patient with chest congestion, cough, mucous production, shortness of breath, and generalized weakness that has been getting progressively worse. Patient has required the use of a wheel chair as he is weak. Patient denies any chest pain or chest pressure. No pain in the arm, back, or jaw. No nausea or vomiting. He is not sweating profusely. Allergies Allergy/AdvReac Type Severity Reaction Status Date / Time lisinopril AdvReac Mild MUSCLE Verified 06/25/23 09:29 CRAMPS Tqjxbfg-NQS-BtQ Reductase AdvReac Mild MUSCLE Verified 06/25/23 09:29 Inhibitor CRAMPING [Fekyjcs-Cxv-Jbk Reductase Inhibitor] ezetimibe [From Zetia] AdvReac Unknown Unknown Verified 06/25/23 09:29 losartan [From Cozaar] AdvReac Unknown Unknown Verified 06/25/23 09:29 olmesartan [From Benicar] AdvReac Unknown Unknown Verified 06/25/23 09:29 pravastatin AdvReac Unknown Unknown Verified 06/25/23 09:29 rosuvastatin [From Crestor] AdvReac Unknown Unknown Verified 06/25/23 09:29 simvastatin AdvReac Unknown Unknown Verified 06/25/23 09:29 Home Medications Medication Instructions Recorded Confirmed Type triamcinolone acetonide 0.1 % 1 applic topical BID #454 grams 08/06/22 06/25/23 Rx topical cream ferrous sulfate 325 mg (65 mg 325 mg PO Q OTHER DAY #15 tabs 11/05/22 06/25/23 Rx iron) tablet aspirin 81 mg tablet,delayed 81 mg PO DAILY #30 tabs 11/10/22 06/25/23 Rx release calcium polycarbophil 625 mg tablet 625 mg PO .COMPLEX #90 tabs 11/18/22 06/25/23 Rx fluticasone propionate 50 2 spray intranasal DAILY #16 grams 11/18/22 06/25/23 Rx mcg/actuation nasal spray,suspension donepezil 10 mg tablet 10 mg PO DAILY #30 tabs 12/01/22 06/25/23 Rx doxazosin 4 mg tablet 8 mg (2 x 4 mg) PO HS #60 tabs 12/01/22 06/25/23 Rx furosemide 20 mg tablet 20 mg PO DAILY #30 tabs 12/01/22 06/25/23 Rx levothyroxine 175 mcg tablet 175 mcg PO DAILY #30 tabs 12/01/22 06/25/23 Rx metoprolol tartrate 50 mg tablet 50 mg PO BID #60 tabs 12/01/22 06/25/23 Rx potassium chloride 20 mEq 20 meq PO BID #180 tabs 12/10/22 06/25/23 Rx tablet,extended release niacin 1,000 mg tablet,extended 2,000 mg (2 x 1,000 mg) PO HS #30 05/08/23 06/25/23 Rx release tabs niacin 500 mg tablet,extended 500 mg PO HS #30 tabs 05/08/23 06/25/23 Rx release Past Med/Surg History Medical History Anemia Dysuria [place] syndrome Lung nodule Osteoarthritis Prostate cancer (12/12/10) Prostate cancer Renal artery stenosis Surgical History S/P cataract surgery S/P cholecystectomy Family History Mother Heart disease Other Hypertension Denies family history of Ovarian cancer Prostate cancer Coronary heart disease Myocardial infarction Breast cancer Colorectal cancer Social History Smoking Status: Former smoker Tobacco Type: Cigarettes Age Started Using Tobacco: 14; Age Quit Using Tobacco: 19; packs per day: 1.5; Cigarettes Per Day: 30; Second Hand Exposure: No; Do You Dip or Chew Tobacco: No; Tobacco Cessation Education Requested by Patient: No Hx Alcohol Use: No Hx Substance Use: No Preferred Language: Hebrew Communication Ability: Effective Visual Impairment: No Limitations Hearing Ability: Normal Game Room Attendant Required: No Beliefs That Will Affect Care: None marital status: / Current Living Situation: Alone current occupational status: retired Other Information That Helps Us Care for You: No Feels Safe at Home: Yes Childhood Exposure to Second-Hand Smoke: Yes Diet: regular caffeine: Yes Dental Care, Regularly: No Physical Activity Frequency: Daily Seatbelt Use: always Sunscreen Use: No Assistive Devices: Cane, Denture - Upper, Denture - Lower, Raised Toilet Seat, Walker and Wheelchair Review of Systems 2 Review of Systems: See HPI Physical Exam 2 Physical Exam: Gen: non-toxic appearing elderly male in NAD HEENT: AT NC, MMM, OP clear, PERRL, EOMI Resp: CTAB with adequate air movement, good inspiratory effort, rhonchi noted diffusely - clear with coughing, no increased work of breathing, no accessory muscle usage CV: RRR no m/r/g clinically well perfused peripheral pulses 2+ symmetric Abd: soft, non-tender, non-distended, no HSM or masses noted Skin: warm, dry, well perfused, no rashes or bruising noted Neuro: alert and oriented Psych: appropriate mood and affect MSK: no obvious deformities Results & Data Results & Data Vital Signs (Past 12 Hours) Vital Signs Temp Pulse Pulse Resp BP BP Pulse Ox 06/25/23 11:35 95 06/25/23 11:35 67 18 132/70 98 06/25/23 11:18 74 06/25/23 10:41 36.3 C L 70 18 117/70 92 O2 Del Method 06/25/23 11:35 Room Air, Nebulizer 06/25/23 11:35 Nebulizer 06/25/23 11:18 06/25/23 10:41 Room Air Laboratory Results 06/25/23 11:20 06/25/23 11:20 Diagnostic Findings Chest X-Ray 06/25/23 10:45 FINDINGS: 2 AP, portable, upright chest radiographs are compared to study dated 05/26/2014 and correlated with chest CT dated 01/01/2017. The heart is enlarged and noting atherosclerotic calcification of the thoracic aorta. The pulmonary vasculature is noncongested. Chronic interstitial thickening is similar to previous. There is elevation right hemidiaphragm. Foci of parenchymal scarring are seen throughout both lungs. There are left basilar airspace opacities. There are also mild opacities in the right midlung. No large pleural effusion or pneumothorax is seen. The skeletal structures are osteopenic. The bony thorax is grossly intact. Degenerative change is noted in the shoulders and spine. IMPRESSION: 1. Cardiomegaly without radiographic evidence of congestive failure. 2. Left basilar opacities as well as mild opacities in the right midlung could represent scarring/atelectasis versus an infectious/inflammatory pneumonitis. Clinical correlation will be required and radiographic follow-up to resolution is recommended. 3. No pleural effusion is seen. Supervising Physician Co-Signing Physician Notes Baltazar is an 87-year-old male with no past medical history of LA/CHF who presented with cough, congestion and suspectedPneumonia on x-ray. He had a mild leukocytosis and was admitted for the treatment of community-acquired pneumonia. Initial EKG did not show territorial signs of ischemia, troponin subsequently resulted at 1000. Patient reports he is chest pain-free preceding admission and during admission, has not had any chest pain or chest pressure at any point. Patient was volume resuscitated, treated with antibiotics as noted and admitted for further monitoring. 2-hour repeat troponin was ordered, pending following transfer to room. Patient clinically with a rhythm change on monitor and has been intermittently in A-fib/a flutter, and notified by telemetry that he had a brief run of NSVT with stable blood pressure. Repeat EKG with A-fib with ? ST depressions versus repole. patient remains completely chest pain-free. Stat echo placed, cardiology consulted for ischemic evaluation. He is on metoprolol 50 twice daily, one 5 mg IV dose was given for acute rate control. Magnesium level is pending, goal magnesium 2.0/potassium 4.0. Stat echo with no wall motion abnormalities, troponin subsequently returned and is downtrending to 800. Reviewed with cardiology, suspected demand ischemia do not feel this represents atypical ACS. will continue heparinization based on A-fib and continue optimization of both rate control and fluid status on PCU. Stat echo pending formal read but without wall motion abnormality or reduced EF. Resident Activity Tracking Resident Involvement: Resident Care Provided Care Provided: Adult Hospital Medicine
[2023-06-25 12:31] LABS: Adenovirus PCR Not Detected (NotDetected); Bordetella parapertussis PCR Not Detected (NotDetected); Bordetella pertussis PCR Not Detected (NotDetected); Chlamydia pneumoniae PCR Not Detected (NotDetected); Coronavirus 229E PCR Not Detected (NotDetected); Coronavirus CoV-2 (COVID19)PCR Not Detected (NotDetected); Coronavirus HKU1 PCR Not Detected (NotDetected); Coronavirus NL63 PCR Not Detected (NotDetected); Coronavirus OC43PCR Not Detected (NotDetected); Human Metapneumovirus PCR Not Detected (NotDetected); Influenza A PCR Not Detected (NotDetected); Influenza B PCR Not Detected (NotDetected); Mycoplasma pneumoniae PCR Not Detected (NotDetected); Parainfluenza Virus 1 PCR Not Detected (NotDetected); Parainfluenza Virus 2 PCR Not Detected (NotDetected); Parainfluenza Virus 3 PCR Not Detected (NotDetected); Parainfluenza Virus 4 PCR Not Detected (NotDetected); Respiratory Syncytial VirusPCR Not Detected (NotDetected); Rhinovirus/Enterovirus PCR Not Detected (NotDetected)
[2023-06-25 14:07] LABS: Appearance Urine Clear (Clear); Bilirubin Urine Negative (Negative); Blood Urine Negative (Negative); Color Urine Yellow; Glucose Urine UA Negative (Negative); Ketones Urine 1+ (Negative); Leukocyte Esterase Urine Negative (Negative); Nitrite Urine Negative (Negative); Protein Urine Negative (Negative); Specific Gravity Urine 1.014 (1.000-1.030); Urobilinogen Urine Negative (Negative); pH Urine 5.5 (4.5-7.5)
--- NOTE | 2023-06-25 14:31 | Electrocardiogram Report ---
Test Reason : Blood Pressure : / mmHG Vent. Rate : 073 BPM Atrial Rate : 073 BPM P-R Int : 140 ms QRS Dur : 084 ms QT Int : 368 ms P-R-T Axes : 059 023 075 degrees QTc Int : 405 ms Normal sinus rhythm with sinus arrhythmia Normal ECG When compared with ECG of 24-NOV-2011 09:20, No significant change was found Confirmed by Nixon Albert ([id number]) on 06/25/2023 2:30:54 PM Referred By: Kenrick Shirley Confirmed By:Nixon Albert
[2023-06-25] MEDS ORDERED: ONDANSETRON INJ 2 MG/ML 2 ML VIAL IV PRN (14:41)
[2023-06-25] MEDS ORDERED: ACETAMINOPHEN 325 MG TAB PO PRN (14:41)
[2023-06-25] MEDS ORDERED: POLYETHYLENE (MIRALAX) 17 GM PACK PO PRN (14:41)
[2023-06-25] MEDS ORDERED: BENZONATATE 100 MG CAPSULE PO PRN (14:41)
--- NOTE | 2023-06-25 14:50 | XRay Report ---
XR chest 2V PA/lateral CLINICAL HISTORY: pneumonia TECHNIQUE: 2 views of the chest were obtained. Comparison: Comparison is made to chest radiograph 06/25/2023 FINDINGS: No lines and tubes are seen. The cardiomediastinal silhouette is normal. There is a faint airspace op acity in the left lung base. No evidence of pleural effusion or pneumothorax. IMPRESSION: Airspace opacity in the left lower lung, unchanged from prior exam, may represent atelectasis. Previo usly noted right midlung opacity is not well seen on today's exam. ACT 112: Negative or not required by law. Electronically signed by: Quinten Toribio M.D. 06/25/2023 2:49 PM
[2023-06-25] MEDS ORDERED: AZITHROMYCIN 250 MG TAB PO ONE (15:45)
[2023-06-25] MEDS ORDERED: ENOXAPARIN INJ 40 MG/0.4 ML SYR SQ SCH (15:45)
[2023-06-25] MEDS ORDERED: Heparin IV Adult Wt-Based Low-Dose w/ INITIAL Bolus Protocol IV STA (15:57)
[2023-06-25] MEDS ORDERED: METOPROLOL TARTRATE 1 MG/ML VIAL IV STA (15:57)
[2023-06-25] MEDS ORDERED: HEPARIN SODIUM/DEXTROSE 25,000 UNITS/500 ML BAG IV SCH (16:15)
[2023-06-25] MEDS ORDERED: HEPARIN SOD (PORCINE) 1000 UNIT/ML IV ONE (16:15)
[2023-06-25 16:17] LABS: Troponin I High Sensitivity 872.6 pg/ml (0-20)
[2023-06-25] MEDS: ALBUT/IPRATROP 3MG/0.5MG NEB 3 ML VIAL NEB SCH ×3 (16:22→23:14)
[2023-06-25 16:36] LABS: Magnesium 1.5 mg/dl (1.7-2.4)
[2023-06-25] MEDS: MAGNESIUM SULFATE / D5W 1 GM/100 ML BAG IV SCH ×4 (16:51→22:59)
[2023-06-25] MEDS ORDERED: PLASMA-LYTE A 500 ML IV ONE (17:09)
[2023-06-25] MEDS ORDERED: PLASMA-LYTE A 1,000 ML IV SCH (17:15)
[2023-06-25 17:53] LABS: INR 1.1 (0.9-1.1); Partial Thromboplastin Ratio 1.2; Partial Thromboplastin Time 33 Seconds (21-31); Prothrombin Time 12.4 Seconds (9.0-12.0)
[2023-06-25] MEDS: DOXAZosin MESYLATE 4 MG TAB PO SCH (20:22)
[2023-06-25] MEDS: guaiFENesin 600 MG TABCR PO SCH (20:22)
[2023-06-25] MEDS: NIACIN EXTENDED REL 500 MG TABCR PO SCH (20:23)
[2023-06-25] MEDS: POTASSIUM CHLORIDE CRTAB 20 MEQ TABCR PO SCH (20:24)
[2023-06-25] MEDS: METOPROLOL TARTRATE 50 MG TAB PO SCH (20:32)
[2023-06-25] MEDS ORDERED: NIACIN EXTENDED REL 500 MG TABCR PO SCH (21:00)
[2023-06-26 00:01] LABS: ANTI-Xa, UFH(UnfractionatedHep 0.27 IU/ml (0.3-0.7)
[2023-06-26] MEDS ORDERED: METOPROLOL TARTRATE 1 MG/ML VIAL IV STA (01:07)
[2023-06-26] MEDS: ALBUT/IPRATROP 3MG/0.5MG NEB 3 ML VIAL NEB SCH ×6 (03:53→22:40)
[2023-06-26] MEDS: LEVOTHYROXINE SODIUM 175 MCG TABLET PO SCH (07:00)
[2023-06-26 07:24] LABS: Basophils # (auto) 0.04 K/uL (0.00-0.20); Basophils % (auto) 0.4 %; Eosinophils # (auto) 0.29 K/uL (0.00-0.50); Eosinophils % (auto) 3.2 %; Hematocrit (blood only) 29.9 % (42.0-52.0); Hemoglobin 9.8 g/dl (14.0-18.0); Immature Granulocytes # (auto) 0.16 K/uL (0.01-0.20); Immature Granulocytes % (auto) 1.8 %; Lymphocytes # (auto) 0.91 K/uL (1.20-3.40); Mean Corpuscular Hemoglobin 31.6 pg (25.0-34.0); Mean Corpuscular Hgb Conc 32.8 g/dL (32.0-36.0); Mean Corpuscular Volume 96.5 fL (80.0-100.0); Mean Platelet Volume 8.8 fL (9.4-12.4); Monocytes % (auto) 6.6 %; Neutrophils # (auto) 7.13 K/uL (1.40-6.50); Platelet Count 311 K/uL (130-400); RDW Standard Deviation 46.4 fL (36.4-46.3); White Blood Count 9.13 K/ul (4.8-10.8)
[2023-06-26 07:38] LABS: BUN Creatinine Ratio 10.9 (10-20); Calcium 8.1 mg/dl (8.6-10.3); Creatinine Clr Calc Pharmacy 85.9 ml/min; Est GFR (African American) 100.6 ml/min; Est GFR (Non-African American) 86.8 ml/min; Potassium 3.2 mmol/L (3.5-5.1)
[2023-06-26 07:45] LABS: ANTI-Xa, UFH(UnfractionatedHep 0.18 IU/ml (0.3-0.7)
[2023-06-26] MEDS ORDERED: HEPARIN SOD (PORCINE) 1000 UNIT/ML IV ONE (08:15)
[2023-06-26] MEDS: AZITHROMYCIN 250 MG TAB PO SCH (08:17)
[2023-06-26] MEDS: METOPROLOL TARTRATE 50 MG TAB PO SCH ×2 (08:17→20:24)
[2023-06-26] MEDS: DONEPEZIL HCL 10 MG TAB PO SCH (08:18)
[2023-06-26] MEDS: FLUTICASONE PROPIONATE NA SPR 16 GM BTL SCH (08:18)
[2023-06-26] MEDS: POTASSIUM CHLORIDE CRTAB 20 MEQ TABCR PO SCH ×2 (08:18→20:27)
[2023-06-26] MEDS: guaiFENesin 600 MG TABCR PO SCH ×2 (08:18→20:25)
[2023-06-26] MEDS ORDERED: POTASSIUM CHLORIDE CRTAB 20 MEQ TABCR PO STA (08:42)
[2023-06-26] MEDS ORDERED: ASPIRIN 81 MG ECTAB PO SCH (09:00)
[2023-06-26 10:16] LABS: Troponin I High Sensitivity 570.5 pg/ml (0-20)
[2023-06-26 10:24] LABS: Thyroid Stimulating Hormone 1.058 uIu/ml (0.300-4.500)
[2023-06-26] MEDS ORDERED: BENZOCAINE 20% (ORAJEL) 11.9 GM TUBE MT PRN (10:43)
[2023-06-26] MEDS: APIXABAN 5 MG TABLET PO SCH ×2 (10:47→20:24)
[2023-06-26] MEDS: AMIODARONE 200 MG TAB PO SCH ×2 (10:47→16:06)
--- NOTE | 2023-06-26 10:59 | Cardiology Consultation ---
Date of Consultation June 26, 2023 Assessment & Plan (1) Atrial fibrillation with RVR: -new diagnosis. -may be related to his acute illness. -fortunately, he converted to sinus rhythm this morning. -suggest amiodarone at 200 mg b.i.d. while hospitalized, then 200 mg daily. -suggest Eliquis 5 mg b.i.d.. -discussed with Dr. Obrien. (2) Abnormal ECG: -suspect secondary to left ventricular hypertrophy with repolarization changes. -fortunately, troponins are trending down. (3) LVH (left ventricular hypertrophy): -wiih-pb-isksvash LVH noted on echocardiogram. (4) Elevated troponin: -likely a supply demand mismatch. -no evidence of an acute coronary syndrome. -can discontinue heparin gtt. History of Present Illness Attending Physician: Homa Obrien MD History of Present Illness Mr. Leong is an 87-year-old male admitted yesterday a community-acquired pneumonia. Soon after admission he developed atrial fibrillation with a rapid ventricular response EKG. This consultation was ordered to assistance cardiac management. The patient was in his usual state health until approximately 1 week prior to presentation. He was noticing a productive cough, progressive shortness of breath, weakness, and anorexia. He was seen by Christie Mancini PA-C with the above complaints. His saturation at rest was 91%, therefore, patient was sent to the emergency room for an evaluation. Soon after admission, the patient developed atrial fibrillation with a rapid ventricular response. His EKG noted significant ST depression in the anterolateral leads. His initial troponin was also elevated 1061.3. Dr. Kumar asked that I evaluate the patient acutely. On my arrival, the patient was resting comfortably in bed and in no acute distress. He specifically denied chest discomfort and palpitations. An echocardiogram performed at the bedside noted normal left ventricular systolic function without wall motion abnormalities. There was mild LVH. We opted to start the patient on intravenous heparin because of his atrial fibrillation, and also the possibility of an acute coronary syndrome. Fortunately, the patient's repeat troponin went down to 872. This morning, at approximately 8:00 a.m., the patient converted to sinus rhythm. The patient has never known of atrial fibrillation previously. He has never had a prior cardiac history. Currently, patient is resting comfortably in bed without complaints. His son is at the bedside. Past medical and surgical history 1. Hypertension 2. Hypercholesterolemia 3. Paroxysmal atrial fibrillation-June 2023 4. Hypothyroidism 5. Iron deficiency anemia 6. Renal artery stenosis 7. Gilbert's syndrome 8. DJD 9. Dementia 10. History of prostate carcinoma 11. Intra-ocular lens implants 12. Cholecystectomy Social history , lives alone. Son lives across the street Quit tobacco use at age 19 No alcohol Family history Noncontributory Review of systems A 10 point review systems was undertaken and negative except that described above. Allergies Allergy/AdvReac Type Severity Reaction Status Date / Time lisinopril AdvReac Mild MUSCLE Verified 06/25/23 09:29 CRAMPS Qwyngdj-VCB-SgK Reductase AdvReac Mild MUSCLE Verified 06/25/23 09:29 Inhibitor CRAMPING [Nhmdcas-Ntv-Nex Reductase Inhibitor] ezetimibe [From Zetia] AdvReac Unknown Unknown Verified 06/25/23 09:29 losartan [From Cozaar] AdvReac Unknown Unknown Verified 06/25/23 09:29 olmesartan [From Benicar] AdvReac Unknown Unknown Verified 06/25/23 09:29 pravastatin AdvReac Unknown Unknown Verified 06/25/23 09:29 rosuvastatin [From Crestor] AdvReac Unknown Unknown Verified 06/25/23 09:29 simvastatin AdvReac Unknown Unknown Verified 06/25/23 09:29 Home Medications Medication Instructions Recorded Confirmed Type triamcinolone acetonide 0.1 % 1 applic topical BID #454 grams 08/06/22 06/25/23 Rx topical cream ferrous sulfate 325 mg (65 mg 325 mg PO Q OTHER DAY #15 tabs 11/05/22 06/25/23 Rx iron) tablet aspirin 81 mg tablet,delayed 81 mg PO DAILY #30 tabs 11/10/22 06/25/23 Rx release calcium polycarbophil 625 mg tablet 625 mg PO .COMPLEX #90 tabs 11/18/22 06/25/23 Rx fluticasone propionate 50 2 spray intranasal DAILY #16 grams 11/18/22 06/25/23 Rx mcg/actuation nasal spray,suspension donepezil 10 mg tablet 10 mg PO DAILY #30 tabs 12/01/22 06/25/23 Rx doxazosin 4 mg tablet 8 mg (2 x 4 mg) PO HS #60 tabs 12/01/22 06/25/23 Rx furosemide 20 mg tablet 20 mg PO DAILY #30 tabs 12/01/22 06/25/23 Rx levothyroxine 175 mcg tablet 175 mcg PO DAILY #30 tabs 12/01/22 06/25/23 Rx metoprolol tartrate 50 mg tablet 50 mg PO BID #60 tabs 12/01/22 06/25/23 Rx potassium chloride 20 mEq 20 meq PO BID #180 tabs 12/10/22 06/25/23 Rx tablet,extended release niacin 1,000 mg tablet,extended 2,000 mg (2 x 1,000 mg) PO HS #30 05/08/23 06/25/23 Rx release tabs niacin 500 mg tablet,extended 500 mg PO HS #30 tabs 05/08/23 06/25/23 Rx release Patient History Medical History Anemia Dysuria [place] syndrome Lung nodule Osteoarthritis Prostate cancer (12/12/10) Prostate cancer Renal artery stenosis Surgical History S/P cataract surgery S/P cholecystectomy Family History Mother Heart disease Other Hypertension Denies family history of Ovarian cancer Prostate cancer Coronary heart disease Myocardial infarction Breast cancer Colorectal cancer Social History Smoking Status: Former smoker Tobacco Type: Cigarettes Age Started Using Tobacco: 14; Age Quit Using Tobacco: 19; packs per day: 1.5; Cigarettes Per Day: 30; Second Hand Exposure: No; Do You Dip or Chew Tobacco: No; Tobacco Cessation Education Requested by Patient: No Hx Alcohol Use: No Hx Substance Use: No Preferred Language: Hungarian Communication Ability: Effective Visual Impairment: No Limitations Hearing Ability: Normal Government Relations Analyst Required: No Beliefs That Will Affect Care: None marital status: / Current Living Situation: Alone current occupational status: retired Other Information That Helps Us Care for You: No Feels Safe at Home: Yes Childhood Exposure to Second-Hand Smoke: Yes Diet: regular caffeine: Yes Dental Care, Regularly: No Physical Activity Frequency: Daily Seatbelt Use: always Sunscreen Use: No Assistive Devices: Cane, Denture - Upper, Denture - Lower, Raised Toilet Seat, Walker and Wheelchair Physical Exam Physical Exam: In general is well-developed well-nourished male in no acute distress. HEENT exam is negative. Neck is supple with full carotid upstrokes. No carotid bruits. Jugular is pressure is flat 90. There is no thyromegaly. Cardiovascular exam reveals a regular rhythm with distant heart sounds. No obvious murmurs. Lungs note diffuse rhonchi and expiratory wheezes. Abdomen is soft without bruits. Extremities reveal intact radial artery pulses bilaterally. There is no peripheral edema Results & Data Vital Signs (Past 12 Hours) Vital Signs Temp Pulse Pulse Resp BP BP Pulse Ox 06/26/23 08:16 06/26/23 07:54 36.9 C 141 H 18 104/66 92 06/26/23 07:04 120 H 18 93 06/26/23 05:51 136 H 06/26/23 03:00 36.5 C 113 H 19 104/57 L 96 06/26/23 02:09 100 H 101/68 94 06/26/23 01:46 113 H 105/60 06/26/23 01:39 111 H 90/57 L 06/26/23 01:24 154 H 117/76 06/26/23 01:21 136 H 20 117/76 94 06/26/23 00:56 37.1 C 146 H 22 114/61 91 06/26/23 00:00 89 06/25/23 23:14 98 H 18 97 06/25/23 22:58 36.8 C 99 H 18 93/41 L 92 O2 Del Method O2 Flow Rate 06/26/23 08:16 Room Air 4 06/26/23 07:54 Nasal Cannula 06/26/23 07:04 Oxymask 4 06/26/23 05:51 06/26/23 03:00 Oxymask 06/26/23 02:09 Oxymask 3 06/26/23 01:46 06/26/23 01:39 06/26/23 01:24 06/26/23 01:21 Oxymask 3 06/26/23 00:56 Oxymask 3 06/26/23 00:00 06/25/23 23:14 Nasal Cannula 2 06/25/23 22:58 Room Air Laboratory Results CBC notes hemoglobin 9.8 hematocrit 29.9, white count 9.13, and platelet count of [id number]. Electrolytes note a sodium of 131, potassium 3.7, chloride 99, bicarb 23, BUN 7, creatinine 0.64, and glucose of 114. Magnesium level is normal at 2.2. Initial high sensitivity troponin was 1061.3, now down to 570.5. Diagnostic Findings Limited echocardiogram at the bedside noted normal systolic function with ejection fraction 55-60%. There were no wall motion abnormality. There was mild LVH. Initial EKG notes sinus rhythm with PACs. Follow-up EKG noted atrial fibrillation with rapid ventricular response and a significant ST and T-wave abnormality in the anterolateral leads. Chest x-ray notes and airspace opacity in the left lower lobe. PG Care Time/CCT Total # of Minutes Spent Total Time Spent with Patient: Total time spent is greater than 50% in coordination of care (as documented) at patient's floor/unit and/or counseling patient: Coding Level of Care Code 05832 INT INP/OBS CARE 3/75MIN Diagnoses Atrial fibrillation with RVR I48.91 Abnormal ECG R94.31 LVH (left ventricular hypertrophy) I51.7 Elevated troponin R79.89
--- NOTE | 2023-06-26 11:04 | XCELERA ---
[id number] \\[id number]
--- NOTE | 2023-06-26 11:11 | Hospitalist Progress Note ---
Date of Service June 26, 2023 Assessment & Plan (1) Paroxysmal atrial fibrillation: Plan: With rapid atrial fibrillation after admission with rates as high as the 180s with ST depression and elevated troponin from demand ischemia It is likely that some of his recent dyspnea has been secondary to rapid A-fib at home but he was unaware of this diagnosis previously Spontaneously converted to sinus rhythm Appreciate cardiology consultation Echo with moderate LVH and preserved EF, no valvular disease TSH normal Start amiodarone 200 Mg p.o. twice daily while admitted and then down to 200 mg daily after discharge Stop heparin drip and start Eliquis 5 Mg p.o. twice daily Follow on telemetry Keep electrolytes replete-give potassium chloride today Continue home metoprolol 50 Mg p.o. twice daily (2) Pneumonia: Plan: With recent viral URI symptoms and now with leukocytosis, productive cough, left lower lobe infiltrate-likely secondary bacterial pneumonia despite negative procalcitonin Viral respiratory BioFire negative. -Continue ceftriaxone and azithromycin -Follow blood cultures-no growth to date -Pulmonary toilet -Follow chest x-ray to resolution (3) Elevated troponin: Plan: Demand ischemia secondary to rapid atrial fibrillation and pneumonia. Did not have any chest pain Troponin peaked on admission at 1061 and has trended downward EKG with ST depressions with rapid atrial fibrillation secondary to LVH as per cardiology Echo without wall motion abnormalities No further ischemic evaluation needed (4) Weakness: Plan: Likely in the setting of acute illness. PT/OT ordered. May need rehab (5) Hyponatremia: Plan: Ongoing, likely secondary to poor p.o. intake and pneumonia. Received IV fluids in the ER, none further needed Stable today at 131 Follow BMP (6) Hypertension: Plan: Blood pressures acceptable Continue metoprolol and holding home furosemide (7) Prostate cancer: Plan: Continue home doxazosin. 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 (9) Hypercholesterolemia: Plan: Patient statin intolerant. Resume home niacin 2500 mg after discharge Plan Code status: full DVT ppx: Switch heparin drip to Eliquis Dispo: Continued stay in PCU PT/OT consults pending, may need rehab Admission and Anticipated Discharge Date Admission Date: June 25, 2023 Subjective Patient feeling better, less short of breath. He was in rapid A-fib through the night with rates as high as the 180s but spontaneously converted to sinus rhythm this morning. Mild cough. Son reports the whole family has been sick with URI symptoms over the last several weeks. Patient was unaware of any previous diagnosis of atrial fibrillation. Denies any chest pain. Not bringing up any sputum. Has low appetite. Also complains of a sore in his lower gums under his dentures. I discussed his care with cardiology. Physical Exam Constitutional: WD/WN, vitals as above Eyes: PERRL, conjunctivae normal, anicteric sclerae ENMT: external ear and nose normal, oropharynx normal (Except small ulceration bottom gums) Neck: trachea midline, no thyromegaly Respiratory: normal respiratory effort and + cough Auscultation: + crackles (Left base); no rhonchi and no wheezes Cardiovascular: RRR, no murmur, no edema Chest (Breasts): Chest: normal inspection of chest Gastrointestinal (Abdomen): normal bowel sounds, soft, nontender, no hepatosplenomegaly Musculoskeletal: Extremities: extremities normal to inspection; no cyanosis and no clubbing Skin: no rashes, warm and dry Neurologic: moves all extremities and awake; no focal motor deficits Psychiatric: A+Ox3, euthymic affect Lymphatic: no lymphedema Results & Data Results & Data Vital Signs (Past 12 Hours) Vital Signs Temp Pulse Pulse Resp BP BP Pulse Ox 06/26/23 10:50 76 18 94 06/26/23 08:16 06/26/23 07:54 36.9 C 141 H 18 104/66 92 06/26/23 07:04 120 H 18 93 06/26/23 05:51 136 H 06/26/23 03:00 36.5 C 113 H 19 104/57 L 96 06/26/23 02:09 100 H 101/68 94 06/26/23 01:46 113 H 105/60 06/26/23 01:39 111 H 90/57 L 06/26/23 01:24 154 H 117/76 06/26/23 01:21 136 H 20 117/76 94 06/26/23 00:56 37.1 C 146 H 22 114/61 91 06/26/23 00:00 89 06/25/23 23:14 98 H 18 97 O2 Del Method O2 Flow Rate 06/26/23 10:50 Room Air 06/26/23 08:16 Room Air 4 06/26/23 07:54 Nasal Cannula 06/26/23 07:04 Oxymask 4 06/26/23 05:51 06/26/23 03:00 Oxymask 06/26/23 02:09 Oxymask 3 06/26/23 01:46 06/26/23 01:39 06/26/23 01:24 06/26/23 01:21 Oxymask 3 06/26/23 00:56 Oxymask 3 06/26/23 00:00 06/25/23 23:14 Nasal Cannula 2 Laboratory Results CBC, BMP, magnesium, troponin reviewed PG Care Time/CCT Total # of Minutes Spent Total Time Spent with Patient: Total time spent is greater than 50% in coordination of care (as documented) at patient's floor/unit and/or counseling patient: Coding Level of Care Code 82508 SUB INP/OBS CARE 3/50MIN Diagnoses Paroxysmal atrial fibrillation I48.0 Pneumonia J18.9 Elevated troponin R79.89 Weakness R53.1 Hyponatremia E87.1 Hypertension I10 Prostate cancer C61 SDAT (senile dementia of Alzheimer's type) G30.1; F02.80 Hypercholesterolemia E78.00
[2023-06-26] MEDS ORDERED: cefTRIAXone SODIUM 2,000 MG in DEXTROSE 5 % MINI-B 50 ML IV SCH (12:00)
--- NOTE | 2023-06-26 12:27 | Electrocardiogram Report ---
Test Reason : Blood Pressure : / mmHG Vent. Rate : 160 BPM Atrial Rate : 133 BPM P-R Int : 000 ms QRS Dur : 162 ms QT Int : 290 ms P-R-T Axes : 000 010 009 degrees QTc Int : 473 ms Atrial fibrillation with rapid ventricular response with premature ventricular or aberrantly conducte d complexes Anterolateral ST abnormality Abnormal ECG When compared with ECG of 25-JUN-2023 11:16, Significant changes have occurred Confirmed by Nixon Albert ([id number]) on 06/26/2023 12:26:55 PM Referred By: Kenrick Shirley Confirmed By:Nixon Albert
[2023-06-26] MEDS: cefTRIAXone SODIUM 2,000 MG in DEXTROSE 5 % MINI-B 50 ML IV SCH (15:23)
[2023-06-26 16:15] LABS: ANTI-Xa, UFH(UnfractionatedHep 0.83 IU/ml (0.3-0.7)
[2023-06-26] MEDS: DOXAZosin MESYLATE 4 MG TAB PO SCH (20:25)
[2023-06-26] MEDS: NIACIN EXTENDED REL 500 MG TABCR PO SCH (20:26)
[2023-06-27] MEDS: ALBUT/IPRATROP 3MG/0.5MG NEB 3 ML VIAL NEB SCH ×6 (02:55→22:03)
[2023-06-27] MEDS: LEVOTHYROXINE SODIUM 175 MCG TABLET PO SCH (05:37)
[2023-06-27 06:43] LABS: Basophils # (auto) 0.04 K/uL (0.00-0.20); Basophils % (auto) 0.5 %; Eosinophils # (auto) 0.25 K/uL (0.00-0.50); Eosinophils % (auto) 3.2 %; Hematocrit (blood only) 27.2 % (42.0-52.0); Hemoglobin 9.4 g/dl (14.0-18.0); Immature Granulocytes # (auto) 0.27 K/uL (0.01-0.20); Immature Granulocytes % (auto) 3.4 %; Lymphocytes # (auto) 0.98 K/uL (1.20-3.40); Lymphocytes % (auto) 12.4 %; Mean Corpuscular Hemoglobin 32.8 pg (25.0-34.0); Mean Corpuscular Hgb Conc 34.6 g/dL (32.0-36.0); Mean Corpuscular Volume 94.8 fL (80.0-100.0); Mean Platelet Volume 8.7 fL (9.4-12.4); Monocytes # (auto) 0.65 K/uL (0.11-0.59); Monocytes % (auto) 8.2 %; Neutrophils # (auto) 5.73 K/uL (1.40-6.50); Neutrophils % (auto) 72.3 %; Platelet Count 310 K/uL (130-400); RDW Coefficient of Variation 12.7 % (11.5-14.5); Red Blood Count 2.87 M/uL (4.70-6.10); White Blood Count 7.92 K/ul (4.8-10.8)
[2023-06-27 07:19] LABS: BUN Creatinine Ratio 7.6 (10-20); Calcium 8.6 mg/dl (8.6-10.3); Creatinine Clr Calc Pharmacy 69.6 ml/min; Est GFR (African American) 92.3 ml/min; Est GFR (Non-African American) 79.6 ml/min; Potassium 3.9 mmol/L (3.5-5.1)
[2023-06-27] MEDS: AZITHROMYCIN 250 MG TAB PO SCH (08:30)
[2023-06-27] MEDS: DONEPEZIL HCL 10 MG TAB PO SCH (08:30)
[2023-06-27] MEDS: FLUTICASONE PROPIONATE NA SPR 16 GM BTL SCH (08:30)
[2023-06-27] MEDS: METOPROLOL TARTRATE 50 MG TAB PO SCH ×2 (08:30→20:14)
[2023-06-27] MEDS: AMIODARONE 200 MG TAB PO SCH ×2 (08:30→17:52)
[2023-06-27] MEDS: guaiFENesin 600 MG TABCR PO SCH ×2 (08:30→20:14)
[2023-06-27] MEDS: POTASSIUM CHLORIDE CRTAB 20 MEQ TABCR PO SCH ×2 (08:33→20:16)
[2023-06-27] MEDS: APIXABAN 5 MG TABLET PO SCH ×2 (09:46→20:14)
[2023-06-27] MEDS: cefTRIAXone SODIUM 2,000 MG in DEXTROSE 5 % MINI-B 50 ML IV SCH (11:47)
--- NOTE | 2023-06-27 18:02 | Hospitalist Progress Note ---
Date of Service June 27, 2023 Assessment & Plan (1) Paroxysmal atrial fibrillation: Plan: With rapid atrial fibrillation after admission with rates as high as the 180s with ST depression and elevated troponin from demand ischemia It is likely that some of his recent dyspnea has been secondary to rapid A-fib at home but he was unaware of this diagnosis previously Spontaneously converted to sinus rhythm and has remained in sinus Echo with moderate LVH and preserved EF, no valvular disease TSH normal Appreciate cardiology consultation-suspects A-fib secondary to recent acute illness. Start amiodarone 200 Mg p.o. twice daily while admitted and then down to 200 mg daily after discharge Will start Eliquis 5 Mg p.o. twice daily for anticoagulation Continue to follow on telemetry Keep electrolytes replete-look good today Continue home metoprolol 50 Mg p.o. twice daily (2) Pneumonia: Plan: With recent viral URI symptoms and now with leukocytosis, productive cough, left lower lobe infiltrate-likely secondary bacterial pneumonia despite negative procalcitonin Viral respiratory BioFire negative. Improving but still has some shortness of breath and cough. Appetite is increasing. Leukocytosis resolved, no fevers -Continue ceftriaxone and azithromycin -Follow blood cultures-no growth to date -Pulmonary toilet -Follow chest x-ray to resolution in 4 to 6 weeks (3) Elevated troponin: Plan: Demand ischemia secondary to rapid atrial fibrillation and pneumonia. Did not have any chest pain Troponin peaked on admission at 1061 and has trended downward EKG with ST depressions with rapid atrial fibrillation secondary to LVH as per cardiology Echo without wall motion abnormalities No further ischemic evaluation needed Was on heparin drip which was now converted to Eliquis for atrial fibrillation (4) Anemia: Plan: Hemoglobin lower than admission at 9.8 but likely some hemodilutional effect Normocytic Previously had low B12 level but has not been checked in a while Check iron studies, B12, folate TSH was normal this admission (5) Weakness: Plan: Likely in the setting of acute illness. PT/OT evaluations on 06/26 say that he is stable to go home with home health Son is requesting repeat PT evaluation prior to discharge to ensure patient remains strong enough to go home He does have some orthostasis which is chronic and puts him at risk for falls- recommend JOS hose and decreasing doxazosin dose-patient would like to discuss this with his PCP (6) Hyponatremia: Plan: Ongoing, likely secondary to poor p.o. intake and pneumonia. Received IV fluids in the ER, none further needed Improved to 134 Follow BMP (7) Hypertension: Plan: Blood pressures acceptable Continue metoprolol and holding home furosemide Is on doxazosin 8 mg at bedtime for prostate (8) Prostate cancer: Plan: With a history of radiation, hormonal injections, and seed implants He is on doxazosin at a high dose of 8 mg at bedtime for lower urinary tract symptoms which have since been resolved. He does have daily orthostatic symptoms with dizziness with sitting and standing and feels like he is going to pass out frequently. Advised to lower the dose of doxazosin to 4 mg but patient would like to discuss with his PCP and/or urology. For now, add JOS coles (9) SDAT (senile dementia of Alzheimer's type): Plan: Continue home donepezil. (10) Hypercholesterolemia: Plan: Patient statin intolerant. Resume home niacin 2500 mg after discharge (11) Orthostasis: Plan: As noted above Plan Code status: full DVT ppx: Eliquis Dispo: Continued stay in PCU, but improving. PT/OT is recommending home with home health. Please continue daily PT/OT and patient will need reassessment prior to discharge as per request of patient's so n. He will also need a 90-day supply of the amiodarone and Eliquis sent to [facility] in addition to a 30-day supply to a local pharmacy Admission and Anticipated Discharge Date Admission Date: June 25, 2023 Subjective Patient reports feeling about the same as yesterday. Still with some cough and shortness of breath with exertion. Has chronic lightheadedness with sitting and standing likely from being on doxazosin. Not moving bowels but is urinating. Telemetry with normal sinus rhythm and rates in the 60s to 80s, no further atrial fibrillation Discussed his care with his son at the bedside. Physical Exam Constitutional: WD/WN, vitals as above Neck: trachea midline, no thyromegaly Respiratory: normal respiratory effort Auscultation: + crackles (Left base); no rhonchi and no wheezes Cardiovascular: RRR, no murmur, no edema Chest (Breasts): Chest: normal inspection of chest Gastrointestinal (Abdomen): normal bowel sounds, soft, nontender, no hepatosplenomegaly Musculoskeletal: Extremities: extremities normal to inspection; no cyanosis and no clubbing Skin: no rashes, warm and dry Neurologic: moves all extremities and awake; no focal motor deficits Psychiatric: A+Ox3, euthymic affect Lymphatic: no lymphedema Results & Data Results & Data Vital Signs (Past 12 Hours) Vital Signs Temp Pulse Pulse Resp BP Pulse Ox O2 Del Method 06/27/23 17:59 75 16 90 Room Air 06/27/23 15:42 36.6 C 70 18 126/60 90 Room Air 06/27/23 14:31 68 16 94 Room Air 06/27/23 13:59 63 06/27/23 12:00 36.8 C 69 18 145/63 H 91 Room Air 06/27/23 11:08 67 16 94 Room Air 06/27/23 08:30 Room Air 06/27/23 08:00 37.2 C 82 18 124/60 92 06/27/23 07:29 71 16 92 Room Air 06/27/23 06:23 62 Laboratory Results CBC, BMP, blood cultures reviewed PG Care Time/CCT Total # of Minutes Spent Total Time Spent with Patient: Total time spent is greater than 50% in coordination of care (as documented) at patient's floor/unit and/or counseling patient: Coding Level of Care Code 08327 SUB INP/OBS CARE 3/50MIN Diagnoses Paroxysmal atrial fibrillation I48.0 Pneumonia J18.9 Elevated troponin R79.89 Anemia D64.9 Weakness R53.1 Hyponatremia E87.1 Hypertension I10 Prostate cancer C61 SDAT (senile dementia of Alzheimer's type) G30.1; F02.80 Hypercholesterolemia E78.00 Orthostasis I95.1
[2023-06-27] MEDS: NIACIN EXTENDED REL 500 MG TABCR PO SCH (20:13)
[2023-06-27] MEDS: DOXAZosin MESYLATE 4 MG TAB PO SCH (20:14)
[2023-06-28] MEDS: ALBUT/IPRATROP 3MG/0.5MG NEB 3 ML VIAL NEB SCH ×4 (02:47→14:30)
[2023-06-28] MEDS: LEVOTHYROXINE SODIUM 175 MCG TABLET PO SCH (06:27)
[2023-06-28 06:51] LABS: Basophils # (auto) 0.05 K/uL (0.00-0.20); Basophils % (auto) 0.5 %; Eosinophils # (auto) 0.38 K/uL (0.00-0.50); Eosinophils % (auto) 3.9 %; Hematocrit (blood only) 31.3 % (42.0-52.0); Hemoglobin 10.3 g/dl (14.0-18.0); Immature Granulocytes # (auto) 0.31 K/uL (0.01-0.20); Immature Granulocytes % (auto) 3.2 %; Lymphocytes # (auto) 0.99 K/uL (1.20-3.40); Lymphocytes % (auto) 10.3 %; Mean Corpuscular Hemoglobin 32.4 pg (25.0-34.0); Mean Corpuscular Hgb Conc 32.9 g/dL (32.0-36.0); Mean Corpuscular Volume 98.4 fL (80.0-100.0); Mean Platelet Volume 8.7 fL (9.4-12.4); Monocytes # (auto) 0.87 K/uL (0.11-0.59); Neutrophils # (auto) 7.04 K/uL (1.40-6.50); Neutrophils % (auto) 73.1 %; Platelet Count 352 K/uL (130-400); RDW Coefficient of Variation 13.2 % (11.5-14.5); RDW Standard Deviation 48.1 fL (36.4-46.3); Red Blood Count 3.18 M/uL (4.70-6.10); White Blood Count 9.64 K/ul (4.8-10.8)
[2023-06-28 07:27] LABS: BUN Creatinine Ratio 5.3 (10-20); Calcium 8.7 mg/dl (8.6-10.3); Creatinine Clr Calc Pharmacy 73.3 ml/min; Est GFR (African American) 94.3 ml/min; Est GFR (Non-African American) 81.3 ml/min; Magnesium 1.9 mg/dl (1.7-2.4); Potassium 4.4 mmol/L (3.5-5.1)
[2023-06-28 07:29] LABS: Folate (Folic Acid),Ser orPlas 9.2 ng/ml (>5.38)
[2023-06-28] MEDS: AMIODARONE 200 MG TAB PO SCH (09:55)
[2023-06-28] MEDS: FLUTICASONE PROPIONATE NA SPR 16 GM BTL SCH (09:55)
[2023-06-28] MEDS: APIXABAN 5 MG TABLET PO SCH (09:55)
[2023-06-28] MEDS: DONEPEZIL HCL 10 MG TAB PO SCH (09:55)
[2023-06-28] MEDS: guaiFENesin 600 MG TABCR PO SCH (09:55)
[2023-06-28] MEDS: METOPROLOL TARTRATE 50 MG TAB PO SCH (09:55)
[2023-06-28] MEDS: AZITHROMYCIN 250 MG TAB PO SCH (09:55)
[2023-06-28] MEDS: POTASSIUM CHLORIDE CRTAB 20 MEQ TABCR PO SCH (10:00)
--- NOTE | 2023-06-28 12:38 | Discharge Summary ---
Discharge Summary Date of Service June 28, 2023 Notes For Next Care Provider Medication Changes From Visit Azithromycin 250mg po daily x 1 more day Cefdinir 300mg po bid x 3 more days Added amiodarone 200mg po daily Added Eliquis 5mg po bid Stopped aspirin 81mg po daily Admission HPI Per Admitting Provider 87 y/o male with a PMHx of dementia, osteoporosis, HTN, asymptomatic, carotid artery stenosis, hypothyroidism, brought in by son after outpatient appointment today as he has been having progressive SOB of approximately 1 week duration. O2 saturation was 91% in office which prompted ED evaluation. Patient was started on CTX for presumed pneumonia and given a nebulizer treatment. Patient was also dehydrated and was started on NS @ 100 mL/hr. Notably labs were significant for leukocytosis and an elevated troponin at 1061. Repeat is pending. EKG without ST changes. Patient with chest congestion, cough, mucous production, shortness of breath, and generalized weakness that has been getting progressively worse. Patient has required the use of a wheel chair as he is weak. Patient denies any chest pain or chest pressure. No pain in the arm, back, or jaw. No nausea or vomiting. He is not sweating profusely. Principal Dx & Hospital Course #1 = Principal Diagnosis (1) Paroxysmal atrial fibrillation: With rapid atrial fibrillation after admission with rates as high as the 180s with ST depression and elevated troponin from demand ischemia It is likely that some of his recent dyspnea has been secondary to rapid A-fib at home but he was unaware of this diagnosis previously Spontaneously converted to sinus rhythm on the morning of hospital day #2 and has remained in sinus ever since Echo with moderate LVH and preserved EF, no valvular disease TSH normal Appreciate cardiology consultation-suspects A-fib secondary to recent acute illness. Started amiodarone 200 Mg p.o. twice daily while admitted and then down to 200 mg daily after discharge Started Eliquis 5 Mg p.o. twice daily for anticoagulation Continue home metoprolol 50 Mg p.o. twice daily Follow up with Cardiology in 2-3 weeks (2) Pneumonia: With recent viral URI symptoms and now with leukocytosis, productive cough, left lower lobe infiltrate-likely secondary bacterial pneumonia despite negative procalcitonin Viral respiratory BioFire negative. Improving with less shortness of breath and cough. Appetite is increasing. Leukocytosis resolved, no fevers -Received ceftriaxone and azithromycin x 4 days and dc to home on 3 more days of cefdinir and 1 more day of azithromycin -Follow blood cultures-no growth to date -Follow chest x-ray to resolution in 4 to 6 weeks as an outpt (3) Elevated troponin: Demand ischemia secondary to rapid atrial fibrillation and pneumonia. Did not have any chest pain Troponin peaked on admission at 1061 and trended downward since admission EKG with ST depressions with rapid atrial fibrillation secondary to LVH as per cardiology Echo without wall motion abnormalities No further ischemic evaluation needed Was on heparin drip which was now converted to Eliquis for atrial fibrillation (4) Anemia: Hemoglobin lower than admission at 9.8 but likely some hemodilutional effect Normocytic Previously had low B12 level but has not been checked in a while Checked iron studies, B12, folate--> more consistent with anemia of chronic disease, B12 and folate normal TSH was normal this admission Continue home FeSO4 every other day (5) Weakness: Likely in the setting of acute illness. PT/OT evaluations recommend to go home with home health, gave rolled walker Much improved, ambulating in halls with walker on day of discharge He does have some orthostasis which is chronic and puts him at risk for falls- recommend JOS hose and decreasing doxazosin dose-patient would like to discuss this with his PCP (6) Hyponatremia: Ongoing, likely secondary to poor p.o. intake and pneumonia. Received IV fluids in the ER, none further needed resolved (7) Hypertension: Blood pressures acceptable Continue metoprolol and can resume home furosemide on discharge Is on doxazosin 8 mg at bedtime for prostate (8) Prostate cancer: With a history of radiation, hormonal injections, and seed implants He is on doxazosin at a high dose of 8 mg at bedtime for lower urinary tract symptoms which have since been resolved. He does have daily orthostatic symptoms with dizziness with sitting and standing and feels like he is going to pass out frequently. Advised to lower the dose of doxazosin to 4 mg but patient would like to discuss with his PCP and/or urology. For now, added JOS hose (9) SDAT (senile dementia of Alzheimer's type): Continue home donepezil. (10) Hypercholesterolemia: Patient statin intolerant. Resume home niacin 2500 mg after discharge (11) Orthostasis: As noted above Plan Code status: full DVT ppx: Eliquis Dispo: much improved, dc to home with home health Discharge Exam Constitutional WD/WN, vitals as above Neck trachea midline, no thyromegaly Respiratory normal respiratory effort and + cough Auscultation: + crackles (Left base); no rhonchi and no wheezes Cardiovascular RRR, no murmur, no edema Chest (Breasts) Chest: normal inspection of chest Gastrointestinal (Abdomen) normal bowel sounds, soft, nontender, no hepatosplenomegaly Musculoskeletal Extremities: extremities normal to inspection; no cyanosis and no clubbing Skin no rashes, warm and dry Neurologic moves all extremities and awake; no focal motor deficits Psychiatric A+Ox3, euthymic affect Lymphatic no lymphedema Updated Medication List Medication Instructions Recorded Confirmed Type triamcinolone acetonide 0.1 % 1 applic topical BID #454 grams 08/06/22 06/25/23 Rx topical cream ferrous sulfate 325 mg (65 mg 325 mg PO Q OTHER DAY #15 tabs 11/05/22 06/25/23 Rx iron) tablet aspirin 81 mg tablet,delayed 81 mg PO DAILY #30 tabs 11/10/22 06/25/23 Rx release calcium polycarbophil 625 mg tablet 625 mg PO .COMPLEX #90 tabs 11/18/22 06/25/23 Rx fluticasone propionate 50 2 spray intranasal DAILY #16 grams 11/18/22 06/25/23 Rx mcg/actuation nasal spray,suspension donepezil 10 mg tablet 10 mg PO DAILY #30 tabs 12/01/22 06/25/23 Rx doxazosin 4 mg tablet 8 mg (2 x 4 mg) PO HS #60 tabs 12/01/22 06/25/23 Rx furosemide 20 mg tablet 20 mg PO DAILY #30 tabs 12/01/22 06/25/23 Rx levothyroxine 175 mcg tablet 175 mcg PO DAILY #30 tabs 12/01/22 06/25/23 Rx metoprolol tartrate 50 mg tablet 50 mg PO BID #60 tabs 12/01/22 06/25/23 Rx potassium chloride 20 mEq 20 meq PO BID #180 tabs 12/10/22 06/25/23 Rx tablet,extended release niacin 1,000 mg tablet,extended 2,000 mg (2 x 1,000 mg) PO HS #30 05/08/23 06/25/23 Rx release tabs niacin 500 mg tablet,extended 500 mg PO HS #30 tabs 05/08/23 06/25/23 Rx release amiodarone 200 mg tablet 200 mg PO QAM #30 tabs 06/28/23 Rx amiodarone 200 mg tablet 200 mg PO QAM #90 tabs 06/28/23 Rx apixaban 5 mg tablet (Eliquis) 5 mg PO BID #180 tabs 06/28/23 Rx apixaban 5 mg tablet (Eliquis) 5 mg PO BID #60 tabs 06/28/23 Rx azithromycin 250 mg tablet 250 mg PO QAM #1 tab 06/28/23 Rx benzocaine 20 % mucosal gel 1 applic MT TID PRN mouth 06/28/23 Rx (HurriCaine) irritation #28.4 grams cefdinir 300 mg capsule 300 mg PO BID #6 caps 06/28/23 Rx Hospital Stay Data Consultations 06/25/23 12:44 ED Decision to Admit Stat 06/25/23 16:04 Consult Cardiology Stat Pending Results Patient Have Any Pending Studies at Discharge: Yes (Final blood cultures-no growth to date) Discharge Instructions Given to Patient (Per Discharging Provider) You were admitted with pneumonia and a rapid, irregular heart rhythm called atrial fibrillation. You were treated with antibiotics and need to finish out a course of azithromycin and cefdinir at home. For your heart rhythm, it converted back to a normal rhythm on its own, but you will need to remain on amiodarone to help keep your heart in a normal rhythm. You were started on Eliquis as a blood thinner to prevent stroke that can be associated with atrial fibrillation. If you have any issues with bleeding from anywhere or if you fall and hit your head, you should come to the hospital right away to get checked out. Talk to your PCP about lowering the dose of your doxazosin as this is likely what's causing you to feel lightheaded with standing. Please wear the compression stockings during the day as we discussed. Follow up with your PCP and with the [facility] after discharge. Total Time Total Time Spent Total Time Spent (In Minutes): 35 min Coding Level of Care Code 51611 INP/OBS DISCH >30 MIN Diagnoses Paroxysmal atrial fibrillation I48.0 Pneumonia J18.9 Elevated troponin R79.89 Anemia D64.9 Weakness R53.1 Hyponatremia E87.1 Hypertension I10 Prostate cancer C61 SDAT (senile dementia of Alzheimer's type) G30.1; F02.80 Hypercholesterolemia E78.00 Orthostasis I95.1
[2023-06-28] MEDS: cefTRIAXone SODIUM 2,000 MG in DEXTROSE 5 % MINI-B 50 ML IV SCH (13:30)
== END 2023-06-28 15:57 | disposition home health service (06) | DRG 194 ==
LOC: ED 10:31 → SUATTDRO 12:52 → 2W 12:52 → 2S 18:31